=== PATIENT | male | born 1965 | race Two or more races ===

== ENCOUNTER 2020-05-31 08:20 | Inpatient (IN) | payer OTHER ==
[~2020-05-31] VITALS: Ht 165.1 cm; Wt 114.3 kg
[2020-05-31] MEDS ORDERED: AZITHROMYCIN 500MG/ 250ML 250 ML IV ONE (08:45)
[2020-05-31] MEDS ORDERED: ASCORBIC ACID 500 MG TAB PO ONE (08:45)
[2020-05-31] MEDS ORDERED: REMDESIVIR PER PHARMACY 0 ML IV SCH (08:45)
[2020-05-31] MEDS ORDERED: CHOLECALCIFEROL (VITD3) 2,000 UNIT CAP/TAB PO ONE (08:45)
[2020-05-31] MEDS ORDERED: methylPREDNISolone SOD SUCC 125 MG/2 ML VL IV ONE (08:45)
[2020-05-31] MEDS ORDERED: ZINC SULFATE 220mg CAP or TAB PO ONE (08:45)
[2020-05-31 10:01] LABS: Mean Corpuscular Volume 89.4 fL (80.0-100.0)
[2020-05-31 10:03] LABS: Hemoglobin 16.2 g/dL (13.5-17.5); Mean Corpuscular Hemoglobin 30.8 pg (28.0-32.0); Mean Corpuscular Hgb Conc. 34.5 g/dL (32.0-36.0); Red Blood Cells 5.25 10^6/uL (4.5-5.90); Red Cell Distribution Width 13.3 % (11.8-14.3); White Blood Cell 24.6 10^3/uL (4.4-10.8)
[2020-05-31 10:05] LABS: Basophils % (manual) 0 (0.0-2.0); Blast Cells 0; Eosinophils % (manual) 0 (0-7); Metamyelocytes % 0; Myelocytes % 0; Promyelocytes % 0; Reactive Lymphocytes 0
[2020-05-31 10:07] LABS: Albumin 2.7 g/dL (3.4-5.0); Anion Gap 20 (5-15); Blood Urea Nitrogen 20 mg/dL (7-18); Calcium 9.1 mg/dL (8.5-10.1); Carbon Dioxide 15 mmol/L (21-32); Chloride 94 mmol/L (98-107); Glucose 303 mg/dL (74-106); Magnesium 2.8 mg/dL (1.6-2.6); Sodium 129 mmol/L (136-145)
[2020-05-31 10:13] LABS: Alanine Aminotransferase 24 U/L (16-61); Alkaline Phosphatase 128 U/L (45-117); Aspartate Aminotransferase 41 U/L (15-37); BUN/Creatinine Ratio 17.2; GFR African American 84 mL/min; GFR Non-African American 69 mL/min; Total Protein 9.5 g/dL (6.4-8.2)
[2020-05-31 10:23] LABS: Lactic Acid w/Reflex 4.1 mmol/L (0.4-2.0)
[2020-05-31] MEDS ORDERED: NITROGLYCERIN 0.4 MG SL TAB SL PRN (10:45)
[2020-05-31] MEDS ORDERED: MORPHINE SULFATE INJECTION 2 MG/ML SYRG IV PRN ×2 (10:45→12:00)
[2020-05-31] MEDS ORDERED: DEXTROSE (50%) 50ML SYRG IV PRN (12:00)
[2020-05-31] MEDS ORDERED: traMADol HCL 50 MG TAB PO PRN (12:00)
[2020-05-31] MEDS ORDERED: levoFLOXacin 500MG 100 ML IV ONE (12:00)
[2020-05-31] MEDS ORDERED: diphenhdrAMINE HCL 50 MG/1 ML VL IV PRN (12:00)
[2020-05-31] MEDS ORDERED: PROMETHAZINE HCL 25 MG/ML 1ML IV PRN (12:00)
[2020-05-31] MEDS ORDERED: LACTULOSE 20Gm/30ML SOLN PO PRN (12:00)
[2020-05-31] MEDS ORDERED: TEMAZEPAM 15 MG CAP PO PRN (12:00)
[2020-05-31] MEDS ORDERED: IOHEXOL 350 MG/ML 100ML IJ ONE (12:46)
[2020-05-31 13:44] LABS: Urine Bacteria NONE SEEN /hpf (None Seen); Urine Blood 1+ /uL (Negative); Urine Mucus FEW (None Seen); Urine Specific Gravity 1.033 (1.001-1.035); Urine WBC <1 /hpf (0 - 3)
[2020-05-31] MEDS: SODIUM CHLORIDE 0.9% 1,000 ML IV SCH (13:54)
[2020-05-31] MEDS: InsuLIN REG 1unit/0.01ml Soln (100units/ml) SC SCH ×3 (13:56→20:40)
[2020-05-31] MEDS: ACCU-CHEK COMFORT CURVE STRIP VI SCH ×3 (13:56→20:40)
[2020-05-31] MEDS ORDERED: CLINDAMYCIN 600MG IV 50 ML IV SCH (14:00)
[2020-05-31 14:10] LABS: Band Neutrophils % (manual) 3; Lymphocytes % (manual) 2 (10.0-50.0); Monocytes % (manual) 7 (0-12)
[2020-05-31] MEDS: CLINDAMYCIN 600MG IV 50 ML IV SCH (19:32)
[2020-05-31] MEDS: BUDESONIDE (INHALATION) 180 MCG IH IN SCH (19:33)
[2020-05-31] MEDS: ALBUTEROL SULF HFA 90MCG INH 200DOSE IN PRN (19:33)
[2020-05-31] MEDS: ENOXAPARIN SOD 40 MG/0.4 ML SYRINGE SC SCH (21:38)
[2020-05-31] MEDS: FAMOTIDINE (10MG/ML) 2ML VL IV SCH (21:38)
[2020-05-31] MEDS: INSULIN LANTUS (GLARGINE) 1 /0.01ml (100units/ml) SC SCH (21:38)
[2020-06-01] MEDS: InsuLIN REG 1unit/0.01ml Soln (100units/ml) SC SCH ×7 (00:02→23:41)
[2020-06-01] MEDS: ACCU-CHEK COMFORT CURVE STRIP VI SCH ×7 (00:02→23:43)
[2020-06-01 00:50] VITALS: BP 106/48
[2020-06-01 01:05] VITALS: BP 108/48
[2020-06-01 02:00] VITALS: BP 109/41
[2020-06-01] MEDS: SODIUM CHLORIDE 0.9% 1,000 ML IV SCH ×2 (02:05→14:41)
[2020-06-01] MEDS: CLINDAMYCIN 600MG IV 50 ML IV SCH ×2 (04:00→11:21)
[2020-06-01 05:01] LABS: Basophils # (auto) 0.1 10 ^3/uL (0-0.2); Basophils % (auto) 0.6 % (0.0-2.0); Eosinophils # (auto) 0 10 ^3/uL (0-0.8); Hematocrit 42.4 % (41.0-53.0); Hemoglobin 14.7 g/dL (13.5-17.5); Lymphocytes % (auto) 4.1 % (10.0-50.0); Mean Corpuscular Hemoglobin 30.4 pg (28.0-32.0); Mean Corpuscular Hgb Conc. 34.7 g/dL (32.0-36.0); Mean Corpuscular Volume 87.4 fL (80.0-100.0); Monocytes # (auto) 0.9 10 ^3/uL (0-1.3); Neutrophils # (auto) 21.4 10 ^3/uL (1.6-8.6); Neutrophils % (auto) 91.3 % (37.0-80.0); Red Blood Cells 4.86 10^6/uL (4.5-5.90); Red Cell Distribution Width 12.8 % (11.8-14.3); White Blood Cell 23.5 10^3/uL (4.4-10.8)
[2020-06-01 05:20] LABS: Albumin 2.4 g/dL (3.4-5.0); Calcium 8.4 mg/dL (8.5-10.1); Potassium 3.9 mmol/L (3.5-5.1)
[2020-06-01 05:23] LABS: BUN/Creatinine Ratio 29.8; Bilirubin, Total 0.8 mg/dL (0.2-1.0); Total Protein 8.3 g/dL (6.4-8.2)
[2020-06-01] MEDS: INSULIN LANTUS (GLARGINE) 1 /0.01ml (100units/ml) SC SCH ×2 (07:04→21:11)
[2020-06-01] MEDS: DexAMETHasone SOD PHOS 10MG/1ML VIAL INJ IV SCH (07:43)
[2020-06-01] MEDS: levoFLOXacin 500MG 100 ML IV SCH (07:43)
[2020-06-01] MEDS: ASCORBIC ACID 1,000 MG TAB PO SCH (07:43)
[2020-06-01] MEDS: ZINC SULFATE 220mg CAP or TAB PO SCH (07:43)
[2020-06-01] MEDS: FAMOTIDINE (10MG/ML) 2ML VL IV SCH ×2 (07:43→21:16)
[2020-06-01] MEDS: ENOXAPARIN SOD 40 MG/0.4 ML SYRINGE SC SCH (07:44)
[2020-06-01] MEDS: CHOLECALCIFEROL (VITD3) 2,000 UNIT CAP/TAB PO SCH (07:44)
[2020-06-01] MEDS: ALBUTEROL SULF HFA 90MCG INH 200DOSE IN PRN ×2 (07:58→22:33)
[2020-06-01] MEDS: BUDESONIDE (INHALATION) 180 MCG IH IN SCH ×2 (07:58→22:00)
[2020-06-01] MEDS ORDERED: IVERMECTIN 3 MG TAB PO ONE (10:00)
[2020-06-01] MEDS ORDERED: REMDESIVIR 200 MG in NS 210ml LOADING DOSE ADULT IV ONE (15:00)
[2020-06-01] MEDS: ENOXAPARIN SOD 80 MG/0.8ML SYRINGE SC SCH (21:16)
[2020-06-02] MEDS: InsuLIN REG 1unit/0.01ml Soln (100units/ml) SC SCH ×5 (03:42→19:55)
[2020-06-02] MEDS: ACCU-CHEK COMFORT CURVE STRIP VI SCH ×5 (03:43→19:40)
[2020-06-02] MEDS: ALBUTEROL SULF HFA 90MCG INH 200DOSE IN PRN (07:00)
[2020-06-02] MEDS: BUDESONIDE (INHALATION) 180 MCG IH IN SCH ×2 (07:00→19:00)
[2020-06-02] MEDS: INSULIN LANTUS (GLARGINE) 1 /0.01ml (100units/ml) SC SCH ×2 (07:40→22:00)
[2020-06-02 08:16] LABS: Albumin 2.3 g/dL (3.4-5.0); Calcium 8.4 mg/dL (8.5-10.1); Potassium 3.6 mmol/L (3.5-5.1)
[2020-06-02 08:21] LABS: Bilirubin, Total 0.8 mg/dL (0.2-1.0); Total Protein 8.1 g/dL (6.4-8.2)
[2020-06-02 08:32] LABS: Hemoglobin 15.3 g/dL (13.5-17.5); Red Cell Distribution Width 13.2 % (11.8-14.3)
[2020-06-02 08:34] LABS: Hematocrit 44.6 % (41.0-53.0); Mean Corpuscular Hemoglobin 30.5 pg (28.0-32.0); Mean Corpuscular Hgb Conc. 34.4 g/dL (32.0-36.0); Mean Corpuscular Volume 88.8 fL (80.0-100.0); Red Blood Cells 5.02 10^6/uL (4.5-5.90); White Blood Cell 16.8 10^3/uL (4.4-10.8)
[2020-06-02 08:39] LABS: Basophils % (manual) 0 (0.0-2.0); Blast Cells 0; Eosinophils % (manual) 0 (0-7); Metamyelocytes % 0; Promyelocytes % 0; Reactive Lymphocytes 0
[2020-06-02] MEDS: ASCORBIC ACID 1,000 MG TAB PO SCH (09:38)
[2020-06-02] MEDS: DexAMETHasone SOD PHOS 10MG/1ML VIAL INJ IV SCH (09:38)
[2020-06-02] MEDS: FAMOTIDINE (10MG/ML) 2ML VL IV SCH ×2 (09:38→22:30)
[2020-06-02] MEDS: ENOXAPARIN SOD 80 MG/0.8ML SYRINGE SC SCH ×2 (09:39→22:30)
[2020-06-02] MEDS: levoFLOXacin 500MG 100 ML IV SCH (09:39)
[2020-06-02] MEDS: ZINC SULFATE 220mg CAP or TAB PO SCH (09:39)
[2020-06-02] MEDS: CHOLECALCIFEROL (VITD3) 2,000 UNIT CAP/TAB PO SCH (09:40)
[2020-06-02 12:41] LABS: Band Neutrophils % (manual) 6; Lymphocytes % (manual) 1 (10.0-50.0); Monocytes % (manual) 3 (0-12); Myelocytes % 2
[2020-06-02] MEDS: REMDESIVIR 100mg 100 MG in SODIUM CHL 0.9% 230 ML IV SCH (15:14)
[2020-06-03] MEDS: InsuLIN REG 1unit/0.01ml Soln (100units/ml) SC SCH ×8 (01:23→23:59)
[2020-06-03] MEDS: ACCU-CHEK COMFORT CURVE STRIP VI SCH ×8 (01:23→23:58)
[2020-06-03 06:34] LABS: Basophils # (auto) 0 10 ^3/uL (0-0.2); Eosinophils # (auto) 0 10 ^3/uL (0-0.8); Hemoglobin 15.7 g/dL (13.5-17.5); Monocytes # (auto) 0.2 10 ^3/uL (0-1.3); Neutrophils # (auto) 10.2 10 ^3/uL (1.6-8.6); White Blood Cell 11.3 10^3/uL (4.4-10.8)
[2020-06-03] MEDS: INSULIN LANTUS (GLARGINE) 1 /0.01ml (100units/ml) SC SCH ×2 (06:34→21:57)
[2020-06-03 06:37] LABS: Basophils % (auto) 0.3 % (0.0-2.0); Hematocrit 44.8 % (41.0-53.0); Lymphocytes # (auto) 0.9 10 ^3/uL (0.4-5.4); Mean Corpuscular Hemoglobin 30.6 pg (28.0-32.0); Mean Corpuscular Volume 87.4 fL (80.0-100.0); Monocytes % (auto) 1.6 % (0.0-12.0); Neutrophils % (auto) 90.1 % (37.0-80.0); Red Blood Cells 5.12 10^6/uL (4.5-5.90); Red Cell Distribution Width 12.7 % (11.8-14.3)
[2020-06-03 06:48] LABS: Albumin 2.2 g/dL (3.4-5.0); Calcium 8.4 mg/dL (8.5-10.1); Potassium 3.9 mmol/L (3.5-5.1)
[2020-06-03 06:51] LABS: BUN/Creatinine Ratio 20.8; Bilirubin, Total 1.1 mg/dL (0.2-1.0)
[2020-06-03] MEDS: BUDESONIDE (INHALATION) 180 MCG IH IN SCH ×2 (07:33→18:54)
[2020-06-03] MEDS: ALBUTEROL SULF HFA 90MCG INH 200DOSE IN PRN ×2 (07:34→18:54)
[2020-06-03] MEDS: CHOLECALCIFEROL (VITD3) 2,000 UNIT CAP/TAB PO SCH (09:49)
[2020-06-03] MEDS: ZINC SULFATE 220mg CAP or TAB PO SCH (09:49)
[2020-06-03] MEDS: ASCORBIC ACID 1,000 MG TAB PO SCH (09:49)
[2020-06-03] MEDS: FAMOTIDINE (10MG/ML) 2ML VL IV SCH ×2 (09:49→21:57)
[2020-06-03] MEDS: levoFLOXacin 500MG 100 ML IV SCH (09:49)
[2020-06-03] MEDS: ENOXAPARIN SOD 80 MG/0.8ML SYRINGE SC SCH ×2 (09:49→21:57)
[2020-06-03] MEDS: DexAMETHasone SOD PHOS 10MG/1ML VIAL INJ IV SCH (09:50)
[2020-06-03] MEDS: REMDESIVIR 100mg 100 MG in SODIUM CHL 0.9% 230 ML IV SCH (15:25)
[2020-06-03] MEDS ORDERED: ACETAMINOPHEN 650 mg PER 20.3 mL UD PO ONE (16:30)
[2020-06-03] MEDS ORDERED: methylPREDNISolone SOD SUCC 40 MG/ML VL IV ONE (16:30)
[2020-06-03] MEDS ORDERED: diphenhdrAMINE HCL 50 MG/1 ML VL IV ONE (16:30)
[2020-06-03] MEDS ORDERED: TOCILIZUMAB 400 MG in SODIUM CHL 0.9% 80 ML IV ONE (17:00)
[2020-06-04] MEDS: ACCU-CHEK COMFORT CURVE STRIP VI SCH ×5 (04:10→20:00)
[2020-06-04] MEDS: InsuLIN REG 1unit/0.01ml Soln (100units/ml) SC SCH ×5 (04:14→20:06)
[2020-06-04 05:24] LABS: Basophils # (auto) 0 10 ^3/uL (0-0.2); Eosinophils # (auto) 0 10 ^3/uL (0-0.8); Hemoglobin 15.3 g/dL (13.5-17.5); Lymphocytes # (auto) 0.6 10 ^3/uL (0.4-5.4); Monocytes # (auto) 0.2 10 ^3/uL (0-1.3)
[2020-06-04 05:25] LABS: Basophils % (auto) 0.3 % (0.0-2.0); Lymphocytes % (auto) 5.8 % (10.0-50.0); Mean Corpuscular Hemoglobin 30.4 pg (28.0-32.0); Mean Corpuscular Hgb Conc. 34.6 g/dL (32.0-36.0); Mean Corpuscular Volume 87.8 fL (80.0-100.0); Monocytes % (auto) 2.3 % (0.0-12.0); Neutrophils % (auto) 91.6 % (37.0-80.0); Red Blood Cells 5.01 10^6/uL (4.5-5.90); Red Cell Distribution Width 12.9 % (11.8-14.3); White Blood Cell 9.8 10^3/uL (4.4-10.8)
[2020-06-04 05:42] LABS: Calcium 8.3 mg/dL (8.5-10.1); Potassium 4.3 mmol/L (3.5-5.1)
[2020-06-04 05:47] LABS: BUN/Creatinine Ratio 30.3; Bilirubin, Total 1.1 mg/dL (0.2-1.0); Total Protein 7.6 g/dL (6.4-8.2)
[2020-06-04] MEDS: INSULIN LANTUS (GLARGINE) 1 /0.01ml (100units/ml) SC SCH ×2 (06:47→22:05)
[2020-06-04] MEDS: BUDESONIDE (INHALATION) 180 MCG IH IN SCH ×2 (08:00→19:00)
[2020-06-04] MEDS: ALBUTEROL SULF HFA 90MCG INH 200DOSE IN PRN ×2 (08:00→20:09)
[2020-06-04] MEDS ORDERED: ACETAMINOPHEN 650 mg PER 20.3 mL UD PO ONE (10:00)
[2020-06-04] MEDS ORDERED: diphenhdrAMINE HCL 50 MG/1 ML VL IV ONE (10:00)
[2020-06-04] MEDS: levoFLOXacin 500MG 100 ML IV SCH (10:17)
[2020-06-04] MEDS: DexAMETHasone SOD PHOS 10MG/1ML VIAL INJ IV SCH (10:17)
[2020-06-04] MEDS: ZINC SULFATE 220mg CAP or TAB PO SCH (10:18)
[2020-06-04] MEDS: FAMOTIDINE (10MG/ML) 2ML VL IV SCH ×2 (10:18→22:06)
[2020-06-04] MEDS: ENOXAPARIN SOD 80 MG/0.8ML SYRINGE SC SCH ×2 (10:19→22:06)
[2020-06-04] MEDS: ASCORBIC ACID 1,000 MG TAB PO SCH (10:19)
[2020-06-04] MEDS: CHOLECALCIFEROL (VITD3) 2,000 UNIT CAP/TAB PO SCH (10:19)
[2020-06-04] MEDS ORDERED: TOCILIZUMAB 400 MG in SODIUM CHL 0.9% 80 ML IV ONE (10:30)
[2020-06-04] MEDS: REMDESIVIR 100mg 100 MG in SODIUM CHL 0.9% 230 ML IV SCH (15:40)
[2020-06-05] MEDS: InsuLIN REG 1unit/0.01ml Soln (100units/ml) SC SCH ×5 (01:06→16:56)
[2020-06-05] MEDS: ACCU-CHEK COMFORT CURVE STRIP VI SCH ×6 (04:08→20:00)
[2020-06-05 06:24] LABS: Hematocrit 43.2 % (41.0-53.0); Hemoglobin 15.2 g/dL (13.5-17.5); Mean Corpuscular Hemoglobin 30.9 pg (28.0-32.0); Mean Corpuscular Hgb Conc. 35.2 g/dL (32.0-36.0); Mean Corpuscular Volume 87.7 fL (80.0-100.0); Red Blood Cells 4.92 10^6/uL (4.5-5.90); Red Cell Distribution Width 12.7 % (11.8-14.3); White Blood Cell 11.7 10^3/uL (4.4-10.8)
[2020-06-05] MEDS: INSULIN LANTUS (GLARGINE) 1 /0.01ml (100units/ml) SC SCH (06:36)
[2020-06-05 06:42] LABS: Band Neutrophils % (manual) 0; Basophils % (manual) 0 (0.0-2.0); Blast Cells 0; Eosinophils % (manual) 0 (0-7); Metamyelocytes % 0; Myelocytes % 0; Promyelocytes % 0; Reactive Lymphocytes 0
[2020-06-05 06:44] LABS: Albumin 2.1 g/dL (3.4-5.0); Calcium 8.5 mg/dL (8.5-10.1); Potassium 4.2 mmol/L (3.5-5.1)
[2020-06-05 06:48] LABS: BUN/Creatinine Ratio 27.4; Bilirubin, Total 0.8 mg/dL (0.2-1.0); Total Protein 7.5 g/dL (6.4-8.2)
[2020-06-05] MEDS: ALBUTEROL SULF HFA 90MCG INH 200DOSE IN PRN (06:55)
[2020-06-05] MEDS: BUDESONIDE (INHALATION) 180 MCG IH IN SCH ×2 (06:55→22:00)
[2020-06-05 08:40] LABS: Lymphocytes % (manual) 8 (10.0-50.0); Monocytes % (manual) 6 (0-12)
[2020-06-05] MEDS: CHOLECALCIFEROL (VITD3) 2,000 UNIT CAP/TAB PO SCH (09:20)
[2020-06-05] MEDS: FAMOTIDINE (10MG/ML) 2ML VL IV SCH ×2 (09:20→23:00)
[2020-06-05] MEDS: DexAMETHasone SOD PHOS 10MG/1ML VIAL INJ IV SCH (09:20)
[2020-06-05] MEDS: levoFLOXacin 500MG 100 ML IV SCH (09:21)
[2020-06-05] MEDS: ENOXAPARIN SOD 80 MG/0.8ML SYRINGE SC SCH ×2 (09:21→23:20)
[2020-06-05] MEDS: ZINC SULFATE 220mg CAP or TAB PO SCH (09:21)
[2020-06-05] MEDS: ASCORBIC ACID 1,000 MG TAB PO SCH (09:21)
[2020-06-05] MEDS: REMDESIVIR 100mg 100 MG in SODIUM CHL 0.9% 230 ML IV SCH (15:42)
[2020-06-05] MEDS ORDERED: InsuLIN REG 1unit/0.01ml Soln (100units/ml) ONE (23:10)
[2020-06-05] MEDS ORDERED: ENOXAPARIN SOD 100 MG/1 ML SYRINGE SC ONE (23:13)
[2020-06-05] MEDS ORDERED: FAMOTIDINE (10MG/ML) 2ML VL IV ONE (23:13)
[2020-06-05] MEDS ORDERED: INSULIN LANTUS (GLARGINE) 1 /0.01ml (100units/ml) SC ONE (23:14)
[2020-06-06] VITALS (8 sets, daily range): BP systolic 103–119; BP diastolic 71–78
[2020-06-06] MEDS: ACCU-CHEK COMFORT CURVE STRIP VI SCH ×6 (00:27→20:24)
[2020-06-06] MEDS: InsuLIN REG 1unit/0.01ml Soln (100units/ml) SC SCH ×7 (00:40→20:28)
[2020-06-06] MEDS: ALBUTEROL SULF HFA 90MCG INH 200DOSE IN PRN ×3 (04:06→20:36)
[2020-06-06] MEDS: BUDESONIDE (INHALATION) 180 MCG IH IN SCH ×2 (04:07→18:36)
[2020-06-06 06:56] LABS: Red Cell Distribution Width 13.1 % (11.8-14.3)
[2020-06-06 06:59] LABS: Hematocrit 50.3 % (41.0-53.0); Mean Corpuscular Hgb Conc. 33.8 g/dL (32.0-36.0); Mean Corpuscular Volume 88.7 fL (80.0-100.0); Red Blood Cells 5.67 10^6/uL (4.5-5.90); White Blood Cell 10.5 10^3/uL (4.4-10.8)
[2020-06-06 07:04] LABS: Basophils % (manual) 0 (0.0-2.0); Blast Cells 0; Metamyelocytes % 0; Promyelocytes % 0; Reactive Lymphocytes 0
[2020-06-06 07:16] LABS: BUN/Creatinine Ratio 26.7; Calcium 8.7 mg/dL (8.5-10.1)
[2020-06-06] MEDS: INSULIN LANTUS (GLARGINE) 1 /0.01ml (100units/ml) SC SCH ×3 (07:48→22:38)
[2020-06-06 11:52] LABS: Band Neutrophils % (manual) 17; Eosinophils % (manual) 1 (0-7); Lymphocytes % (manual) 9 (10.0-50.0); Monocytes % (manual) 2 (0-12); Myelocytes % 1
[2020-06-06] MEDS: DexAMETHasone SOD PHOS 10MG/1ML VIAL INJ IV SCH (12:03)
[2020-06-06] MEDS: ASCORBIC ACID 1,000 MG TAB PO SCH (12:03)
[2020-06-06] MEDS: FAMOTIDINE (10MG/ML) 2ML VL IV SCH ×2 (12:03→22:47)
[2020-06-06] MEDS: CHOLECALCIFEROL (VITD3) 2,000 UNIT CAP/TAB PO SCH (12:03)
[2020-06-06] MEDS: ZINC SULFATE 220mg CAP or TAB PO SCH (12:03)
[2020-06-06] MEDS: ENOXAPARIN SOD 80 MG/0.8ML SYRINGE SC SCH ×2 (12:04→22:46)
[2020-06-06] MEDS: levoFLOXacin 500MG 100 ML IV SCH (12:39)
[2020-06-06] MEDS ORDERED: ONDANSETRON HCL 4 MG/2 ML VIAL IV PRN (13:30)
[2020-06-07] MEDS: ACCU-CHEK COMFORT CURVE STRIP VI SCH ×6 (00:40→20:00)
[2020-06-07] MEDS: InsuLIN REG 1unit/0.01ml Soln (100units/ml) SC SCH ×6 (00:40→20:00)
[2020-06-07 02:43] VITALS: BP 108/68
[2020-06-07 06:53] VITALS: BP 106/70
[2020-06-07] MEDS: ALBUTEROL SULF HFA 90MCG INH 200DOSE IN PRN ×2 (06:53→18:52)
[2020-06-07] MEDS: BUDESONIDE (INHALATION) 180 MCG IH IN SCH ×2 (06:53→18:18)
[2020-06-07 07:00] LABS: Basophils # (auto) 0 10 ^3/uL (0-0.2); Basophils % (auto) 0.4 % (0.0-2.0); Eosinophils # (auto) 0.1 10 ^3/uL (0-0.8); Eosinophils % (auto) 0.9 % (0.0-7.0); Hematocrit 47.6 % (41.0-53.0); Hemoglobin 16.6 g/dL (13.5-17.5); Lymphocytes # (auto) 0.8 10 ^3/uL (0.4-5.4); Lymphocytes % (auto) 9.3 % (10.0-50.0); Mean Corpuscular Hemoglobin 30.7 pg (28.0-32.0); Mean Corpuscular Hgb Conc. 34.9 g/dL (32.0-36.0); Mean Corpuscular Volume 88.1 fL (80.0-100.0); Monocytes # (auto) 0.2 10 ^3/uL (0-1.3); Monocytes % (auto) 1.9 % (0.0-12.0); Neutrophils # (auto) 7.3 10 ^3/uL (1.6-8.6); Neutrophils % (auto) 87.5 % (37.0-80.0); Nucleated Red Blood Cells % 0.1 %; Red Cell Distribution Width 12.9 % (11.8-14.3); White Blood Cell 8.3 10^3/uL (4.4-10.8)
[2020-06-07 07:22] LABS: BUN/Creatinine Ratio 29.6; Calcium 8.3 mg/dL (8.5-10.1); Potassium 4.4 mmol/L (3.5-5.1)
[2020-06-07] MEDS: INSULIN LANTUS (GLARGINE) 1 /0.01ml (100units/ml) SC SCH ×2 (07:39→22:00)
[2020-06-07] MEDS: ASCORBIC ACID 1,000 MG TAB PO SCH (09:36)
[2020-06-07] MEDS: ZINC SULFATE 220mg CAP or TAB PO SCH (09:36)
[2020-06-07] MEDS: FAMOTIDINE (10MG/ML) 2ML VL IV SCH ×2 (09:36→22:00)
[2020-06-07] MEDS: DexAMETHasone SOD PHOS 10MG/1ML VIAL INJ IV SCH (09:36)
[2020-06-07] MEDS: CHOLECALCIFEROL (VITD3) 2,000 UNIT CAP/TAB PO SCH (09:36)
[2020-06-07] MEDS: ENOXAPARIN SOD 80 MG/0.8ML SYRINGE SC SCH ×2 (09:36→22:00)
[2020-06-07] MEDS: levoFLOXacin 500MG 100 ML IV SCH (09:36)
[2020-06-07 11:46] VITALS: BP 102/66
[2020-06-07 15:02] VITALS: BP 121/80
[2020-06-07 18:18] VITALS: BP 110/69
[2020-06-07 23:58] VITALS: BP 100/58
[2020-06-08 03:00] VITALS: BP 114/91
[2020-06-08] MEDS: InsuLIN REG 1unit/0.01ml Soln (100units/ml) SC SCH ×6 (04:00→20:00)
[2020-06-08] MEDS: ACCU-CHEK COMFORT CURVE STRIP VI SCH ×6 (04:00→20:00)
[2020-06-08 05:50] VITALS: BP 109/70
[2020-06-08] MEDS: INSULIN LANTUS (GLARGINE) 1 /0.01ml (100units/ml) SC SCH ×2 (06:49→22:00)
[2020-06-08 07:32] LABS: BUN/Creatinine Ratio 30.4; CRP High Sensitivity 0.66 mg/dL (< 0.3); Calcium 8.2 mg/dL (8.5-10.1); Potassium 4.2 mmol/L (3.5-5.1)
[2020-06-08 07:33] LABS: Basophils # (auto) 0 10 ^3/uL (0-0.2); Basophils % (auto) 0.2 % (0.0-2.0); Eosinophils # (auto) 0.1 10 ^3/uL (0-0.8); Eosinophils % (auto) 0.8 % (0.0-7.0); Hematocrit 47.7 % (41.0-53.0); Hemoglobin 16.2 g/dL (13.5-17.5); Lymphocytes # (auto) 0.9 10 ^3/uL (0.4-5.4); Lymphocytes % (auto) 9.1 % (10.0-50.0); Mean Corpuscular Hemoglobin 30.1 pg (28.0-32.0); Mean Corpuscular Volume 88.6 fL (80.0-100.0); Monocytes # (auto) 0.2 10 ^3/uL (0-1.3); Monocytes % (auto) 2.3 % (0.0-12.0); Neutrophils # (auto) 8.6 10 ^3/uL (1.6-8.6); Neutrophils % (auto) 87.6 % (37.0-80.0); Nucleated Red Blood Cells % 0.1 %; Red Blood Cells 5.38 10^6/uL (4.5-5.90); Red Cell Distribution Width 13.1 % (11.8-14.3); White Blood Cell 9.8 10^3/uL (4.4-10.8)
[2020-06-08] MEDS: BUDESONIDE (INHALATION) 180 MCG IH IN SCH ×2 (10:00→22:00)
[2020-06-08] MEDS: levoFLOXacin 500MG 100 ML IV SCH (10:11)
[2020-06-08] MEDS: CHOLECALCIFEROL (VITD3) 2,000 UNIT CAP/TAB PO SCH (10:11)
[2020-06-08] MEDS: ENOXAPARIN SOD 80 MG/0.8ML SYRINGE SC SCH ×2 (10:11→22:00)
[2020-06-08] MEDS: ASCORBIC ACID 1,000 MG TAB PO SCH (10:11)
[2020-06-08] MEDS: DexAMETHasone SOD PHOS 10MG/1ML VIAL INJ IV SCH (10:11)
[2020-06-08] MEDS: ZINC SULFATE 220mg CAP or TAB PO SCH (10:11)
[2020-06-08] MEDS: FAMOTIDINE (10MG/ML) 2ML VL IV SCH ×2 (10:11→22:00)
[2020-06-08 13:50] VITALS: BP 110/68
[2020-06-08 19:00] VITALS: BP 107/71
[2020-06-09 02:20] VITALS: BP 113/58
[2020-06-09] MEDS: InsuLIN REG 1unit/0.01ml Soln (100units/ml) SC SCH ×6 (04:00→20:00)
[2020-06-09] MEDS: ACCU-CHEK COMFORT CURVE STRIP VI SCH ×6 (04:00→20:01)
[2020-06-09] MEDS: INSULIN LANTUS (GLARGINE) 1 /0.01ml (100units/ml) SC SCH ×2 (06:05→22:00)
[2020-06-09 07:05] LABS: Basophils # (auto) 0 10 ^3/uL (0-0.2); Basophils % (auto) 0.2 % (0.0-2.0); Eosinophils # (auto) 0 10 ^3/uL (0-0.8); Hemoglobin 16.3 g/dL (13.5-17.5); Lymphocytes # (auto) 0.9 10 ^3/uL (0.4-5.4); Lymphocytes % (auto) 7.1 % (10.0-50.0); Mean Corpuscular Hemoglobin 29.5 pg (28.0-32.0); Mean Corpuscular Hgb Conc. 33.2 g/dL (32.0-36.0); Mean Corpuscular Volume 88.9 fL (80.0-100.0); Monocytes # (auto) 0.6 10 ^3/uL (0-1.3); Monocytes % (auto) 4.6 % (0.0-12.0); Neutrophils # (auto) 10.6 10 ^3/uL (1.6-8.6); Neutrophils % (auto) 88.1 % (37.0-80.0); Red Blood Cells 5.51 10^6/uL (4.5-5.90); Red Cell Distribution Width 13.1 % (11.8-14.3); White Blood Cell 12.1 10^3/uL (4.4-10.8)
[2020-06-09 07:07] VITALS: BP 97/65
[2020-06-09 07:32] LABS: Potassium 3.9 mmol/L (3.5-5.1)
[2020-06-09] MEDS: BUDESONIDE (INHALATION) 180 MCG IH IN SCH ×2 (07:41→18:25)
[2020-06-09] MEDS: ALBUTEROL SULF HFA 90MCG INH 200DOSE IN PRN ×2 (07:41→19:23)
[2020-06-09 07:46] LABS: BUN/Creatinine Ratio 36.9; Calcium 8.4 mg/dL (8.5-10.1)
[2020-06-09] MEDS: DexAMETHasone SOD PHOS 10MG/1ML VIAL INJ IV SCH (09:40)
[2020-06-09] MEDS: levoFLOXacin 500MG 100 ML IV SCH (09:40)
[2020-06-09] MEDS: ZINC SULFATE 220mg CAP or TAB PO SCH (09:41)
[2020-06-09] MEDS: FAMOTIDINE (10MG/ML) 2ML VL IV SCH ×2 (09:41→22:00)
[2020-06-09] MEDS: ASCORBIC ACID 1,000 MG TAB PO SCH (09:41)
[2020-06-09] MEDS: ENOXAPARIN SOD 80 MG/0.8ML SYRINGE SC SCH ×2 (09:41→22:00)
[2020-06-09] MEDS: CHOLECALCIFEROL (VITD3) 2,000 UNIT CAP/TAB PO SCH (09:41)
[2020-06-09 10:54] VITALS: BP 119/79
[2020-06-09] MEDS: guaiFENesin-CODEINE Liq 5 ML UD PO PRN ×2 (13:23→22:18)
[2020-06-09] MEDS ORDERED: PIPERACILLIN-TAZOB 3.375GM 100 ML IV ONE (13:30)
[2020-06-09 14:22] VITALS: BP 106/59
[2020-06-09 18:25] VITALS: BP 104/62
[2020-06-09] MEDS: PIPERACILLIN-TAZO 4.5GM 100 ML IV SCH (22:00)
[2020-06-09 22:01] VITALS: BP 96/69
[2020-06-10] MEDS: ACCU-CHEK COMFORT CURVE STRIP VI SCH ×6 (00:12→21:30)
[2020-06-10] MEDS: InsuLIN REG 1unit/0.01ml Soln (100units/ml) SC SCH ×6 (03:13→21:44)
[2020-06-10 03:17] VITALS: BP 112/68
[2020-06-10] MEDS: PIPERACILLIN-TAZO 4.5GM 100 ML IV SCH ×3 (05:19→22:08)
[2020-06-10 06:10] VITALS: BP 99/48
[2020-06-10] MEDS: BUDESONIDE (INHALATION) 180 MCG IH IN SCH ×2 (06:10→19:09)
[2020-06-10] MEDS: INSULIN LANTUS (GLARGINE) 1 /0.01ml (100units/ml) SC SCH ×2 (06:47→22:09)
[2020-06-10 06:49] LABS: Basophils # (auto) 0.1 10 ^3/uL (0-0.2); Eosinophils # (auto) 0 10 ^3/uL (0-0.8); Eosinophils % (auto) 0.2 % (0.0-7.0); Monocytes # (auto) 0.5 10 ^3/uL (0-1.3); Monocytes % (auto) 3.8 % (0.0-12.0); Neutrophils # (auto) 10.9 10 ^3/uL (1.6-8.6)
[2020-06-10 06:52] LABS: Basophils % (auto) 0.8 % (0.0-2.0); Hematocrit 48.4 % (41.0-53.0); Hemoglobin 16.7 g/dL (13.5-17.5); Lymphocytes # (auto) 1.4 10 ^3/uL (0.4-5.4); Lymphocytes % (auto) 10.7 % (10.0-50.0); Mean Corpuscular Hemoglobin 30.6 pg (28.0-32.0); Mean Corpuscular Hgb Conc. 34.5 g/dL (32.0-36.0); Mean Corpuscular Volume 88.7 fL (80.0-100.0); Neutrophils % (auto) 84.5 % (37.0-80.0); Nucleated Red Blood Cells % 0.1 %; Red Blood Cells 5.46 10^6/uL (4.5-5.90); Red Cell Distribution Width 12.9 % (11.8-14.3); White Blood Cell 12.9 10^3/uL (4.4-10.8)
[2020-06-10] MEDS: ALBUTEROL SULF HFA 90MCG INH 200DOSE IN PRN ×2 (07:04→20:37)
[2020-06-10 07:09] LABS: Potassium 3.9 mmol/L (3.5-5.1)
[2020-06-10 07:17] LABS: BUN/Creatinine Ratio 27.5; Calcium 8.1 mg/dL (8.5-10.1)
[2020-06-10] MEDS: DexAMETHasone SOD PHOS 10MG/1ML VIAL INJ IV SCH (09:45)
[2020-06-10] MEDS: ENOXAPARIN SOD 80 MG/0.8ML SYRINGE SC SCH ×2 (09:45→22:12)
[2020-06-10] MEDS: ASCORBIC ACID 1,000 MG TAB PO SCH (09:45)
[2020-06-10] MEDS: CHOLECALCIFEROL (VITD3) 2,000 UNIT CAP/TAB PO SCH (09:45)
[2020-06-10] MEDS: FAMOTIDINE (10MG/ML) 2ML VL IV SCH ×2 (09:45→22:04)
[2020-06-10] MEDS: ZINC SULFATE 220mg CAP or TAB PO SCH (09:45)
[2020-06-10 14:44] VITALS: BP 103/57
[2020-06-10 19:09] VITALS: BP 107/68
[2020-06-10 22:00] VITALS: BP 103/69
[2020-06-10] MEDS ORDERED: ENOXAPARIN SOD 100 MG/1 ML SYRINGE SC ONE (22:00)
[2020-06-10] MEDS ORDERED: FAMOTIDINE (10MG/ML) 2ML VL IV ONE (22:00)
[2020-06-10] MEDS ORDERED: PIPERACILLIN-TAZO 4.5GM 100 ML IV ONE (22:02)
[2020-06-11] MEDS: ACCU-CHEK COMFORT CURVE STRIP VI SCH ×6 (00:30→20:13)
[2020-06-11] MEDS: InsuLIN REG 1unit/0.01ml Soln (100units/ml) SC SCH ×6 (00:30→20:17)
[2020-06-11 02:35] VITALS: BP 105/72
[2020-06-11] MEDS: PIPERACILLIN-TAZO 4.5GM 100 ML IV SCH ×3 (05:48→22:38)
[2020-06-11] MEDS ORDERED: PIPERACILLIN-TAZO 4.5GM 100 ML IV ONE (05:48)
[2020-06-11 05:56] LABS: Basophils # (auto) 0.1 10 ^3/uL (0-0.2); Basophils % (auto) 0.5 % (0.0-2.0); Eosinophils # (auto) 0 10 ^3/uL (0-0.8); Hematocrit 43.8 % (41.0-53.0); Hemoglobin 15.4 g/dL (13.5-17.5); Mean Corpuscular Hemoglobin 30.7 pg (28.0-32.0); Mean Corpuscular Hgb Conc. 35.1 g/dL (32.0-36.0); Mean Corpuscular Volume 87.3 fL (80.0-100.0); Monocytes # (auto) 0.4 10 ^3/uL (0-1.3); Neutrophils # (auto) 8.6 10 ^3/uL (1.6-8.6); Neutrophils % (auto) 85.5 % (37.0-80.0); Nucleated Red Blood Cells % 0.2 %; Red Blood Cells 5.01 10^6/uL (4.5-5.90); Red Cell Distribution Width 12.6 % (11.8-14.3); White Blood Cell 10.1 10^3/uL (4.4-10.8)
[2020-06-11 06:10] LABS: Potassium 4.1 mmol/L (3.5-5.1)
[2020-06-11 06:12] LABS: BUN/Creatinine Ratio 33.3
[2020-06-11] MEDS: INSULIN LANTUS (GLARGINE) 1 /0.01ml (100units/ml) SC SCH ×2 (07:21→22:39)
[2020-06-11 07:22] VITALS: BP 106/73
[2020-06-11] MEDS: BUDESONIDE (INHALATION) 180 MCG IH IN SCH ×2 (07:22→18:00)
[2020-06-11] MEDS: DexAMETHasone SOD PHOS 10MG/1ML VIAL INJ IV SCH (08:13)
[2020-06-11] MEDS: ZINC SULFATE 220mg CAP or TAB PO SCH (08:13)
[2020-06-11] MEDS: FAMOTIDINE (10MG/ML) 2ML VL IV SCH ×2 (08:13→22:38)
[2020-06-11] MEDS: ENOXAPARIN SOD 80 MG/0.8ML SYRINGE SC SCH ×2 (08:14→22:39)
[2020-06-11] MEDS: ASCORBIC ACID 1,000 MG TAB PO SCH (08:14)
[2020-06-11] MEDS: CHOLECALCIFEROL (VITD3) 2,000 UNIT CAP/TAB PO SCH (08:14)
[2020-06-11] MEDS: guaiFENesin-CODEINE Liq 5 ML UD PO PRN (10:22)
[2020-06-11] MEDS ORDERED: ETOMIDATE (2MG/ML) 20ML VIAL IV ONE ×2 (11:44→11:45)
[2020-06-11] MEDS: fentaNYL Drip 2500mCg/250mlNS 250 ML IV SCH (11:45)
[2020-06-11] MEDS: MIDAZOLAM DRIP 50 mg/50mL 50 ML IV SCH (11:45)
[2020-06-11] MEDS ORDERED: ROCURONIUM 10MG/ML 10ML VIAL IV ONE (11:45)
[2020-06-11] MEDS ORDERED: SUCCINYLCHOLINE CHLORIDE 20 MG/ML 10ML VIAL IV ONE (11:45)
[2020-06-11] MEDS ORDERED: MIDAZOLAM DRIP 50 mg/50mL 50 ML IV ONE (11:51)
[2020-06-11 15:02] VITALS: BP 117/79
[2020-06-11 18:10] VITALS: BP 118/76
[2020-06-11 22:40] VITALS: BP 85/59
[2020-06-12] MEDS: ACCU-CHEK COMFORT CURVE STRIP VI SCH ×6 (00:16→22:07)
[2020-06-12 02:15] VITALS: BP 119/67
[2020-06-12] MEDS: ALBUTEROL SULF HFA 90MCG INH 200DOSE IN PRN ×3 (02:25→19:01)
[2020-06-12] MEDS: guaiFENesin-CODEINE Liq 5 ML UD PO PRN ×2 (03:54→17:22)
[2020-06-12] MEDS: InsuLIN REG 1unit/0.01ml Soln (100units/ml) SC SCH ×6 (04:00→22:03)
[2020-06-12 06:22] VITALS: BP 113/60
[2020-06-12] MEDS: BUDESONIDE (INHALATION) 180 MCG IH IN SCH ×2 (06:22→22:17)
[2020-06-12] MEDS: PIPERACILLIN-TAZO 4.5GM 100 ML IV SCH ×3 (06:26→22:27)
[2020-06-12 08:10] LABS: Basophils # (auto) 0.1 10 ^3/uL (0-0.2); Basophils % (auto) 0.5 % (0.0-2.0); Eosinophils # (auto) 0 10 ^3/uL (0-0.8); Eosinophils % (auto) 0.2 % (0.0-7.0); Hematocrit 47.2 % (41.0-53.0); Hemoglobin 16.2 g/dL (13.5-17.5); Lymphocytes # (auto) 1.7 10 ^3/uL (0.4-5.4); Lymphocytes % (auto) 13.4 % (10.0-50.0); Mean Corpuscular Hemoglobin 30.2 pg (28.0-32.0); Mean Corpuscular Hgb Conc. 34.2 g/dL (32.0-36.0); Mean Corpuscular Volume 88.3 fL (80.0-100.0); Monocytes # (auto) 0.5 10 ^3/uL (0-1.3); Monocytes % (auto) 3.7 % (0.0-12.0); Neutrophils # (auto) 10.7 10 ^3/uL (1.6-8.6); Neutrophils % (auto) 82.2 % (37.0-80.0); Nucleated Red Blood Cells % 0.1 %; Red Blood Cells 5.35 10^6/uL (4.5-5.90); Red Cell Distribution Width 13.1 % (11.8-14.3); White Blood Cell 13.1 10^3/uL (4.4-10.8)
[2020-06-12 08:24] LABS: BUN/Creatinine Ratio 29.6; Potassium 4.3 mmol/L (3.5-5.1)
[2020-06-12] MEDS: ENOXAPARIN SOD 80 MG/0.8ML SYRINGE SC SCH ×2 (09:29→22:17)
[2020-06-12] MEDS: ASCORBIC ACID 1,000 MG TAB PO SCH (09:29)
[2020-06-12] MEDS: DexAMETHasone SOD PHOS 10MG/1ML VIAL INJ IV SCH (09:29)
[2020-06-12] MEDS: FAMOTIDINE (10MG/ML) 2ML VL IV SCH ×2 (09:29→22:17)
[2020-06-12] MEDS: ZINC SULFATE 220mg CAP or TAB PO SCH (09:29)
[2020-06-12] MEDS: CHOLECALCIFEROL (VITD3) 2,000 UNIT CAP/TAB PO SCH (09:29)
[2020-06-12] MEDS: INSULIN LANTUS (GLARGINE) 1 /0.01ml (100units/ml) SC SCH ×2 (09:49→22:22)
[2020-06-12 10:20] VITALS: BP 123/72
[2020-06-12] MEDS: MIDAZOLAM DRIP 50 mg/50mL 50 ML IV SCH (10:52)
[2020-06-12] MEDS: fentaNYL Drip 2500mCg/250mlNS 250 ML IV SCH (10:52)
[2020-06-12 15:20] VITALS: BP 119/76
[2020-06-12 22:18] VITALS: BP 101/77
[2020-06-13 02:05] VITALS: BP 110/73
[2020-06-13] MEDS: ACCU-CHEK COMFORT CURVE STRIP VI SCH ×7 (04:14→23:44)
[2020-06-13] MEDS: InsuLIN REG 1unit/0.01ml Soln (100units/ml) SC SCH ×7 (04:40→23:44)
[2020-06-13] MEDS: PIPERACILLIN-TAZO 4.5GM 100 ML IV SCH ×3 (05:39→21:15)
[2020-06-13 06:09] LABS: Basophils # (auto) 0.1 10 ^3/uL (0-0.2); Basophils % (auto) 0.7 % (0.0-2.0); Eosinophils # (auto) 0 10 ^3/uL (0-0.8); Eosinophils % (auto) 0.1 % (0.0-7.0); Hematocrit 47.2 % (41.0-53.0); Hemoglobin 16.3 g/dL (13.5-17.5); Lymphocytes # (auto) 1.5 10 ^3/uL (0.4-5.4); Lymphocytes % (auto) 12.4 % (10.0-50.0); Mean Corpuscular Hemoglobin 30.3 pg (28.0-32.0); Mean Corpuscular Hgb Conc. 34.5 g/dL (32.0-36.0); Mean Corpuscular Volume 87.9 fL (80.0-100.0); Monocytes # (auto) 0.5 10 ^3/uL (0-1.3); Monocytes % (auto) 3.8 % (0.0-12.0); Neutrophils # (auto) 10.2 10 ^3/uL (1.6-8.6); Nucleated Red Blood Cells % 0.3 %; Red Blood Cells 5.37 10^6/uL (4.5-5.90); Red Cell Distribution Width 13.1 % (11.8-14.3); White Blood Cell 12.3 10^3/uL (4.4-10.8)
[2020-06-13 06:20] LABS: Potassium 3.7 mmol/L (3.5-5.1)
[2020-06-13 06:27] LABS: BUN/Creatinine Ratio 29.9; Calcium 8.2 mg/dL (8.5-10.1)
[2020-06-13] MEDS: guaiFENesin-CODEINE Liq 5 ML UD PO PRN (07:09)
[2020-06-13 07:24] VITALS: BP 111/76
[2020-06-13] MEDS: BUDESONIDE (INHALATION) 180 MCG IH IN SCH ×2 (07:24→18:50)
[2020-06-13] MEDS: ALBUTEROL SULF HFA 90MCG INH 200DOSE IN PRN ×2 (07:24→18:50)
[2020-06-13] MEDS: INSULIN LANTUS (GLARGINE) 1 /0.01ml (100units/ml) SC SCH ×2 (07:45→20:30)
[2020-06-13 10:15] VITALS: BP 101/71
[2020-06-13] MEDS: MIDAZOLAM DRIP 50 mg/50mL 50 ML IV SCH (11:45)
[2020-06-13] MEDS: fentaNYL Drip 2500mCg/250mlNS 250 ML IV SCH (11:45)
[2020-06-13] MEDS: FAMOTIDINE (10MG/ML) 2ML VL IV SCH ×2 (12:20→21:15)
[2020-06-13] MEDS: CHOLECALCIFEROL (VITD3) 2,000 UNIT CAP/TAB PO SCH (12:21)
[2020-06-13] MEDS: ASCORBIC ACID 1,000 MG TAB PO SCH (12:21)
[2020-06-13] MEDS: ZINC SULFATE 220mg CAP or TAB PO SCH (12:21)
[2020-06-13] MEDS: ENOXAPARIN SOD 80 MG/0.8ML SYRINGE SC SCH ×2 (12:22→21:16)
[2020-06-13 15:24] VITALS: BP 119/85
[2020-06-13] MEDS ORDERED: LORazepam 2MG/ML-1ML VIAL IV PRN (16:00)
[2020-06-13 18:50] VITALS: BP 133/86
[2020-06-13 22:48] VITALS: BP 102/67
[2020-06-14] VITALS (28 sets, daily range): BP systolic 77–171; BP diastolic 45–84
[2020-06-14] MEDS: ACCU-CHEK COMFORT CURVE STRIP VI SCH ×5 (03:35→20:00)
[2020-06-14] MEDS: InsuLIN REG 1unit/0.01ml Soln (100units/ml) SC SCH ×5 (03:35→20:00)
[2020-06-14] MEDS: INSULIN LANTUS (GLARGINE) 1 /0.01ml (100units/ml) SC SCH ×2 (05:34→22:00)
[2020-06-14] MEDS: PIPERACILLIN-TAZO 4.5GM 100 ML IV SCH ×3 (06:17→22:11)
[2020-06-14] MEDS: BUDESONIDE (INHALATION) 180 MCG IH IN SCH ×2 (07:09→22:00)
[2020-06-14] MEDS: ZINC SULFATE 220mg CAP or TAB PO SCH (09:52)
[2020-06-14] MEDS: FAMOTIDINE (10MG/ML) 2ML VL IV SCH ×2 (09:53→22:11)
[2020-06-14] MEDS: CHOLECALCIFEROL (VITD3) 2,000 UNIT CAP/TAB PO SCH (09:53)
[2020-06-14] MEDS: ASCORBIC ACID 1,000 MG TAB PO SCH (09:53)
[2020-06-14] MEDS: ENOXAPARIN SOD 80 MG/0.8ML SYRINGE SC SCH ×2 (09:53→22:12)
[2020-06-14] MEDS ORDERED: ETOMIDATE (2MG/ML) 20ML VIAL IV ONE (15:45)
[2020-06-14] MEDS: NOREPINEPHRINE 8 MG/250ML KIT 250 ML IV SCH ×2 (15:45→20:46)
[2020-06-14] MEDS: PHENYLEPHRINE IV 250 ML IV SCH (15:45)
[2020-06-14] MEDS ORDERED: PROPOFOL 100 ML IV SCH ×3 (15:45→19:00)
[2020-06-14] MEDS ORDERED: ROCURONIUM 10MG/ML 10ML VIAL IV ONE (15:45)
[2020-06-14] MEDS ORDERED: ATRACURIUM BESYLATE 1,000 MG in D5W 5% 150 ML IV SCH (16:15)
[2020-06-14] MEDS ORDERED: ATRACURIUM BESYLATE (10 MG/ ML) 10 ML VIAL IV ONE (16:30)
[2020-06-14] MEDS: ATRACURIUM BESYLATE 1,000 MG in D5W 5% 150 ML IV SCH (17:00)
[2020-06-14] MEDS: PROPOFOL 100 ML IV SCH (20:00)
[2020-06-14] MEDS ORDERED: SODIUM BICARBONATE 8.4 % INJ 50ML VIAL IV ONE ×2 (20:00→20:44)
[2020-06-15] VITALS (98 sets, daily range): BP systolic 80–167; BP diastolic 39–68
[2020-06-15] MEDS ORDERED: SODIUM BICARBONATE 8.4 % INJ 50ML VIAL IV SCH ×2
[2020-06-15] MEDS: PROPOFOL 100 ML IV SCH (00:30)
[2020-06-15] MEDS: MIDAZOLAM DRIP 50 mg/50mL 50 ML IV SCH ×4 (02:00→23:00)
[2020-06-15] MEDS: fentaNYL Drip 2500mCg/250mlNS 250 ML IV SCH ×2 (03:15→14:24)
[2020-06-15] MEDS: NOREPINEPHRINE 8 MG/250ML KIT 250 ML IV SCH ×5 (03:43→23:00)
[2020-06-15] MEDS: InsuLIN REG 1unit/0.01ml Soln (100units/ml) SC SCH ×6 (04:00→20:00)
[2020-06-15] MEDS: PHENYLEPHRINE IV 250 ML IV SCH ×4 (04:00→17:10)
[2020-06-15] MEDS: ACCU-CHEK COMFORT CURVE STRIP VI SCH ×6 (04:00→20:00)
[2020-06-15 04:06] LABS: Hematocrit 48.1 % (41.0-53.0); Mean Corpuscular Hemoglobin 30.1 pg (28.0-32.0); Mean Corpuscular Hgb Conc. 33.2 g/dL (32.0-36.0); Mean Corpuscular Volume 90.7 fL (80.0-100.0); Red Cell Distribution Width 13.3 % (11.8-14.3)
[2020-06-15 04:10] LABS: Basophils % (manual) 0 (0.0-2.0); Blast Cells 0; Metamyelocytes % 0; Myelocytes % 0; Promyelocytes % 0; Reactive Lymphocytes 0
[2020-06-15 04:17] LABS: Albumin 2.8 g/dL (3.4-5.0); Calcium 8.1 mg/dL (8.5-10.1)
[2020-06-15 04:21] LABS: BUN/Creatinine Ratio 12.6; Total Protein 6.8 g/dL (6.4-8.2)
[2020-06-15 04:41] LABS: Band Neutrophils % (manual) 2; Eosinophils % (manual) 1 (0-7); Lymphocytes % (manual) 6 (10.0-50.0); Monocytes % (manual) 3 (0-12)
[2020-06-15] MEDS ORDERED: SODIUM BICARBONATE 8.4% INJ 50ML SYRINGE ONE ×2 (05:09→05:14)
[2020-06-15] MEDS: SODIUM BICARBONATE 8.4 % INJ 50ML VIAL IV SCH ×5 (05:16→15:57)
[2020-06-15] MEDS: PIPERACILLIN-TAZO 4.5GM 100 ML IV SCH (06:18)
[2020-06-15] MEDS: INSULIN LANTUS (GLARGINE) 1 /0.01ml (100units/ml) SC SCH ×2 (06:18→22:00)
[2020-06-15] MEDS: FAMOTIDINE (10MG/ML) 2ML VL IV SCH ×2 (08:53→20:55)
[2020-06-15] MEDS: ASCORBIC ACID 1,000 MG TAB PO SCH (10:00)
[2020-06-15] MEDS: CHOLECALCIFEROL (VITD3) 2,000 UNIT CAP/TAB PO SCH (10:00)
[2020-06-15] MEDS: ZINC SULFATE 220mg CAP or TAB PO SCH (10:00)
[2020-06-15] MEDS: CYCLOSPORINE MODIFIED PO SCH ×2 (10:00→20:55)
[2020-06-15] MEDS: ENOXAPARIN SOD 80 MG/0.8ML SYRINGE SC SCH ×2 (10:00→22:21)
[2020-06-15] MEDS: ACETAMINOPHEN 500 MG TAB PO PRN (11:00)
[2020-06-15] MEDS: ATRACURIUM BESYLATE 1,000 MG in D5W 5% 150 ML IV SCH (16:17)
[2020-06-15] MEDS: LINEZOLID 600MG/300ML 300 ML IV SCH (16:17)
[2020-06-15] MEDS: CEFEPIME 2 GM in D5W 5% 50 ML IV SCH (18:18)
[2020-06-16] VITALS (101 sets, daily range): BP systolic 94–153; BP diastolic 41–68
[2020-06-16] MEDS: CEFEPIME 2 GM in D5W 5% 50 ML IV SCH ×2 (00:09→11:53)
[2020-06-16] MEDS: ACCU-CHEK COMFORT CURVE STRIP VI SCH ×6 (00:09→20:00)
[2020-06-16] MEDS: InsuLIN REG 1unit/0.01ml Soln (100units/ml) SC SCH ×6 (04:00→20:00)
[2020-06-16] MEDS: INSULIN LANTUS (GLARGINE) 1 /0.01ml (100units/ml) SC SCH ×2 (04:10→22:00)
[2020-06-16 04:59] LABS: Basophils # (auto) 0.1 10 ^3/uL (0-0.2); Basophils % (auto) 0.3 % (0.0-2.0); Eosinophils # (auto) 0.4 10 ^3/uL (0-0.8); Eosinophils % (auto) 1.8 % (0.0-7.0); Hematocrit 37.2 % (41.0-53.0); Lymphocytes # (auto) 1.4 10 ^3/uL (0.4-5.4); Lymphocytes % (auto) 5.9 % (10.0-50.0); Mean Corpuscular Hemoglobin 30.9 pg (28.0-32.0); Mean Corpuscular Hgb Conc. 34.9 g/dL (32.0-36.0); Mean Corpuscular Volume 88.7 fL (80.0-100.0); Monocytes # (auto) 0.8 10 ^3/uL (0-1.3); Monocytes % (auto) 3.4 % (0.0-12.0); Neutrophils # (auto) 21.3 10 ^3/uL (1.6-8.6); Neutrophils % (auto) 88.6 % (37.0-80.0); Red Blood Cells 4.19 10^6/uL (4.5-5.90); Red Cell Distribution Width 13.4 % (11.8-14.3); White Blood Cell 24.1 10^3/uL (4.4-10.8)
[2020-06-16 05:05] LABS: Calcium 6.8 mg/dL (8.5-10.1); Potassium 4.6 mmol/L (3.5-5.1)
[2020-06-16 05:08] LABS: BUN/Creatinine Ratio 8.3
[2020-06-16 05:13] LABS: Lactic Acid w/Reflex 2.6 mmol/L (0.4-2.0)
[2020-06-16] MEDS: LINEZOLID 600MG/300ML 300 ML IV SCH ×2 (06:00→17:29)
[2020-06-16] MEDS: BUDESONIDE (INHALATION) 0.5 MG/2 ML NEB NEB SCH ×2 (06:15→22:00)
[2020-06-16] MEDS: ALBUTEROL SULF 2.5 MG/0.5ML(0.5%) NEB SOLN NEB SCH ×3 (06:15→22:00)
[2020-06-16] MEDS: MIDAZOLAM DRIP 50 mg/50mL 50 ML IV SCH ×2 (08:44→16:45)
[2020-06-16] MEDS: PHENYLEPHRINE IV 250 ML IV SCH ×2 (09:25→17:29)
[2020-06-16] MEDS: CYCLOSPORINE MODIFIED PO SCH ×2 (10:00→22:00)
[2020-06-16] MEDS: ZINC SULFATE 220mg CAP or TAB PO SCH (10:00)
[2020-06-16] MEDS: CHOLECALCIFEROL (VITD3) 2,000 UNIT CAP/TAB PO SCH (10:00)
[2020-06-16] MEDS: ASCORBIC ACID 1,000 MG TAB PO SCH (10:00)
[2020-06-16] MEDS: ENOXAPARIN SOD 80 MG/0.8ML SYRINGE SC SCH ×2 (10:05→22:00)
[2020-06-16] MEDS: FAMOTIDINE (10MG/ML) 2ML VL IV SCH ×2 (10:06→22:00)
[2020-06-16] MEDS: PROPOFOL 100 ML IV SCH (11:23)
[2020-06-16] MEDS: ATRACURIUM BESYLATE 1,000 MG in D5W 5% 150 ML IV SCH (13:19)
[2020-06-16] MEDS: fentaNYL Drip 2500mCg/250mlNS 250 ML IV SCH (14:04)
[2020-06-17] VITALS (100 sets, daily range): BP systolic 80–145; BP diastolic 35–66
[2020-06-17] MEDS: NOREPINEPHRINE 8 MG/250ML KIT 250 ML IV SCH ×2 (00:25→18:26)
[2020-06-17] MEDS: MIDAZOLAM DRIP 50 mg/50mL 50 ML IV SCH ×6 (00:26→20:00)
[2020-06-17] MEDS: PROPOFOL 100 ML IV SCH ×2 (00:27→18:27)
[2020-06-17 03:48] LABS: Basophils # (auto) 0 10 ^3/uL (0-0.2); Basophils % (auto) 0.2 % (0.0-2.0); Eosinophils # (auto) 0 10 ^3/uL (0-0.8); Eosinophils % (auto) 0.2 % (0.0-7.0); Hematocrit 35.8 % (41.0-53.0); Hemoglobin 11.9 g/dL (13.5-17.5); Lymphocytes # (auto) 0.5 10 ^3/uL (0.4-5.4); Lymphocytes % (auto) 1.9 % (10.0-50.0); Mean Corpuscular Hgb Conc. 33.2 g/dL (32.0-36.0); Mean Corpuscular Volume 90.3 fL (80.0-100.0); Neutrophils # (auto) 22.7 10 ^3/uL (1.6-8.6); Neutrophils % (auto) 93.7 % (37.0-80.0); Red Blood Cells 3.96 10^6/uL (4.5-5.90); Red Cell Distribution Width 13.6 % (11.8-14.3); White Blood Cell 24.2 10^3/uL (4.4-10.8)
[2020-06-17] MEDS: InsuLIN REG 1unit/0.01ml Soln (100units/ml) SC SCH ×7 (04:00→23:54)
[2020-06-17] MEDS: ACCU-CHEK COMFORT CURVE STRIP VI SCH ×7 (04:00→23:38)
[2020-06-17 04:07] LABS: BUN/Creatinine Ratio 7.6; Calcium 6.7 mg/dL (8.5-10.1); Potassium 5.2 mmol/L (3.5-5.1)
[2020-06-17] MEDS: fentaNYL Drip 2500mCg/250mlNS 250 ML IV SCH ×2 (04:49→13:34)
[2020-06-17] MEDS: ALBUTEROL SULF 2.5 MG/0.5ML(0.5%) NEB SOLN NEB SCH ×3 (06:00→22:36)
[2020-06-17] MEDS: LINEZOLID 600MG/300ML 300 ML IV SCH ×2 (06:00→17:41)
[2020-06-17] MEDS: BUDESONIDE (INHALATION) 0.5 MG/2 ML NEB NEB SCH ×2 (06:00→22:36)
[2020-06-17] MEDS: PHENYLEPHRINE IV 250 ML IV SCH ×3 (08:00→18:45)
[2020-06-17] MEDS: INSULIN LANTUS (GLARGINE) 1 /0.01ml (100units/ml) SC SCH ×2 (08:15→21:48)
[2020-06-17] MEDS: ENOXAPARIN SOD 80 MG/0.8ML SYRINGE SC SCH ×2 (11:15→21:44)
[2020-06-17] MEDS ORDERED: DEXTROSE (50%) 50ML SYRG IV ONE (11:15)
[2020-06-17] MEDS ORDERED: ALBUTEROL SULF 2.5 MG/0.5ML(0.5%) NEB SOLN NEB ONE (11:15)
[2020-06-17] MEDS ORDERED: SODIUM BICARBONATE 8.4% INJ 50ML SYRINGE IV ONE (11:15)
[2020-06-17] MEDS ORDERED: InsuLIN REG 1unit/0.01ml Soln (100units/ml) IV ONE (11:15)
[2020-06-17] MEDS ORDERED: SODIUM ZIRCONIUM CYCL 10 GM PAK PO ONE (11:30)
[2020-06-17] MEDS: CHOLECALCIFEROL (VITD3) 2,000 UNIT CAP/TAB PO SCH (11:50)
[2020-06-17] MEDS: ASCORBIC ACID 1,000 MG TAB PO SCH (11:50)
[2020-06-17] MEDS: FAMOTIDINE (10MG/ML) 2ML VL IV SCH ×2 (11:50→21:44)
[2020-06-17] MEDS: ZINC SULFATE 220mg CAP or TAB PO SCH (11:50)
[2020-06-17] MEDS ORDERED: SODIUM CHLORIDE 0.9 % NEB SOLN 3ML NEB ONE (11:54)
[2020-06-17] MEDS: CEFEPIME 2 GM in D5W 5% 50 ML IV SCH (12:00)
[2020-06-17] MEDS: SODIUM BICARBONATE 50ML VIAL 150 ML in D5W 5% 1,000 ML IV SCH ×2 (13:26→23:00)
[2020-06-17] MEDS: SODIUM ZIRCONIUM CYCL 10 GM PAK PO SCH ×2 (14:10→21:44)
[2020-06-17] MEDS: ATRACURIUM BESYLATE 1,000 MG in D5W 5% 150 ML IV SCH (15:00)
[2020-06-17] MEDS ORDERED: BUMETANIDE 2.5mg/10ml (0.25 mg/ml) INJ IV ONE (18:30)
[2020-06-17] MEDS: ACETAMINOPHEN 500 MG TAB PO PRN (21:45)
[2020-06-18] VITALS (97 sets, daily range): BP systolic 89–144; BP diastolic 38–70
[2020-06-18] MEDS: PROPOFOL 100 ML IV SCH ×2 (01:29→09:30)
[2020-06-18] MEDS: MIDAZOLAM DRIP 50 mg/50mL 50 ML IV SCH ×2 (01:29→10:45)
[2020-06-18] MEDS: PHENYLEPHRINE IV 250 ML IV SCH ×3 (03:05→18:01)
[2020-06-18 03:23] LABS: Basophils # (auto) 0 10 ^3/uL (0-0.2); Basophils % (auto) 0.1 % (0.0-2.0); Eosinophils # (auto) 0 10 ^3/uL (0-0.8); Eosinophils % (auto) 0.1 % (0.0-7.0); Hematocrit 30.4 % (41.0-53.0); Hemoglobin 10.2 g/dL (13.5-17.5); Lymphocytes # (auto) 0.6 10 ^3/uL (0.4-5.4); Mean Corpuscular Hemoglobin 30.2 pg (28.0-32.0); Mean Corpuscular Hgb Conc. 33.6 g/dL (32.0-36.0); Mean Corpuscular Volume 89.7 fL (80.0-100.0); Monocytes # (auto) 1.2 10 ^3/uL (0-1.3); Monocytes % (auto) 6.5 % (0.0-12.0); Neutrophils # (auto) 17.4 10 ^3/uL (1.6-8.6); Neutrophils % (auto) 90.3 % (37.0-80.0); Red Blood Cells 3.38 10^6/uL (4.5-5.90); Red Cell Distribution Width 13.5 % (11.8-14.3); White Blood Cell 19.3 10^3/uL (4.4-10.8)
[2020-06-18] MEDS: ACCU-CHEK COMFORT CURVE STRIP VI SCH ×5 (03:24→20:00)
[2020-06-18] MEDS: InsuLIN REG 1unit/0.01ml Soln (100units/ml) SC SCH ×5 (03:24→20:00)
[2020-06-18 03:42] LABS: BUN/Creatinine Ratio 7.2; Calcium 6.2 mg/dL (8.5-10.1); Potassium 4.7 mmol/L (3.5-5.1)
[2020-06-18] MEDS: LINEZOLID 600MG/300ML 300 ML IV SCH ×2 (06:00→17:19)
[2020-06-18] MEDS: BUDESONIDE (INHALATION) 0.5 MG/2 ML NEB NEB SCH (06:00)
[2020-06-18] MEDS: INSULIN LANTUS (GLARGINE) 1 /0.01ml (100units/ml) SC SCH ×2 (06:13→22:00)
[2020-06-18] MEDS: SODIUM ZIRCONIUM CYCL 10 GM PAK PO SCH ×3 (06:13→22:00)
[2020-06-18] MEDS: ALBUTEROL SULF 2.5 MG/0.5ML(0.5%) NEB SOLN NEB SCH ×2 (06:15→06:25)
[2020-06-18] MEDS: FAMOTIDINE (10MG/ML) 2ML VL IV SCH ×2 (09:12→22:00)
[2020-06-18] MEDS: ASCORBIC ACID 1,000 MG TAB PO SCH (09:12)
[2020-06-18] MEDS: CHOLECALCIFEROL (VITD3) 2,000 UNIT CAP/TAB PO SCH (09:12)
[2020-06-18] MEDS: ENOXAPARIN SOD 80 MG/0.8ML SYRINGE SC SCH ×2 (09:12→22:00)
[2020-06-18] MEDS: ZINC SULFATE 220mg CAP or TAB PO SCH (09:12)
[2020-06-18] MEDS: NOREPINEPHRINE 8 MG/250ML KIT 250 ML IV SCH (09:13)
[2020-06-18] MEDS: CEFEPIME 2 GM in D5W 5% 50 ML IV SCH (10:13)
[2020-06-18] MEDS: SODIUM BICARBONATE 50ML VIAL 150 ML in D5W 5% 1,000 ML IV SCH ×2 (10:30→22:00)
[2020-06-18] MEDS: fentaNYL Drip 2500mCg/250mlNS 250 ML IV SCH (14:00)
[2020-06-18] MEDS: ATRACURIUM BESYLATE 1,000 MG in D5W 5% 150 ML IV SCH (16:53)
[2020-06-18] MEDS ORDERED: BUMETANIDE 2.5mg/10ml (0.25 mg/ml) INJ IV ONE (20:30)
[2020-06-19] VITALS (102 sets, daily range): BP systolic 88–161; BP diastolic 45–83
[2020-06-19] MEDS: fentaNYL Drip 2500mCg/250mlNS 250 ML IV SCH (01:17)
[2020-06-19] MEDS: ALBUTEROL SULF 2.5 MG/0.5ML(0.5%) NEB SOLN NEB SCH ×3 (01:20→22:47)
[2020-06-19] MEDS: BUDESONIDE (INHALATION) 0.5 MG/2 ML NEB NEB SCH ×3 (01:20→22:47)
[2020-06-19] MEDS: ACCU-CHEK COMFORT CURVE STRIP VI SCH ×5 (04:00→18:00)
[2020-06-19] MEDS: InsuLIN REG 1unit/0.01ml Soln (100units/ml) SC SCH ×5 (04:00→18:00)
[2020-06-19] MEDS: PHENYLEPHRINE IV 250 ML IV SCH ×3 (04:05→20:45)
[2020-06-19] MEDS: LINEZOLID 600MG/300ML 300 ML IV SCH ×2 (05:49→18:00)
[2020-06-19] MEDS: SODIUM ZIRCONIUM CYCL 10 GM PAK PO SCH (05:50)
[2020-06-19] MEDS: INSULIN LANTUS (GLARGINE) 1 /0.01ml (100units/ml) SC SCH ×2 (05:50→21:31)
[2020-06-19] MEDS ORDERED: BUMETANIDE 2.5mg/10ml (0.25 mg/ml) INJ IV SCH (06:00)
[2020-06-19 06:06] LABS: Basophils # (auto) 0 10 ^3/uL (0-0.2); Basophils % (auto) 0.2 % (0.0-2.0); Eosinophils # (auto) 0.1 10 ^3/uL (0-0.8); Eosinophils % (auto) 0.5 % (0.0-7.0); Hematocrit 27.8 % (41.0-53.0); Hemoglobin 9.5 g/dL (13.5-17.5); Lymphocytes # (auto) 1.1 10 ^3/uL (0.4-5.4); Lymphocytes % (auto) 5.8 % (10.0-50.0); Mean Corpuscular Hemoglobin 30.2 pg (28.0-32.0); Mean Corpuscular Hgb Conc. 34.2 g/dL (32.0-36.0); Mean Corpuscular Volume 88.3 fL (80.0-100.0); Monocytes # (auto) 1.8 10 ^3/uL (0-1.3); Monocytes % (auto) 9.7 % (0.0-12.0); Neutrophils # (auto) 15.3 10 ^3/uL (1.6-8.6); Neutrophils % (auto) 83.8 % (37.0-80.0); Red Blood Cells 3.15 10^6/uL (4.5-5.90); Red Cell Distribution Width 13.7 % (11.8-14.3); White Blood Cell 18.3 10^3/uL (4.4-10.8)
[2020-06-19 06:22] LABS: Potassium 4.4 mmol/L (3.5-5.1)
[2020-06-19 06:34] LABS: BUN/Creatinine Ratio 7.5
[2020-06-19 06:49] LABS: Calcium 5.6 mg/dL (8.5-10.1)
[2020-06-19] MEDS: MIDAZOLAM DRIP 50 mg/50mL 50 ML IV SCH ×2 (08:00→11:30)
[2020-06-19] MEDS ORDERED: SODIUM CHL 0.9% 1000 ML BAG XX ONE (09:00)
[2020-06-19] MEDS: SODIUM BICARBONATE 50ML VIAL 150 ML in D5W 5% 1,000 ML IV SCH (09:30)
[2020-06-19] MEDS: FAMOTIDINE (10MG/ML) 2ML VL IV SCH ×2 (09:49→21:31)
[2020-06-19] MEDS: CHOLECALCIFEROL (VITD3) 2,000 UNIT CAP/TAB PO SCH (09:53)
[2020-06-19] MEDS: ZINC SULFATE 220mg CAP or TAB PO SCH (09:53)
[2020-06-19] MEDS: ASCORBIC ACID 1,000 MG TAB PO SCH (09:53)
[2020-06-19] MEDS: PANTOPRAZOLE 40 MG/10 ML VIAL INJ IV SCH ×2 (10:00→21:31)
[2020-06-19] MEDS ORDERED: HEPARIN SODIUM (PORCINE) 5000 UNITS/ML 1ML VIAL ONE (10:30)
[2020-06-19 12:38] LABS: INR 1.03 (0.9-1.15)
[2020-06-19] MEDS: NOREPINEPHRINE 8 MG/250ML KIT 250 ML IV SCH ×2 (13:30→23:25)
[2020-06-19] MEDS: CEFEPIME 2 GM in D5W 5% 50 ML IV SCH (14:02)
[2020-06-19] MEDS ORDERED: ALBUMIN 25% 100 ML IV ONE (16:45)
[2020-06-19] MEDS ORDERED: CALCIUM GLUC 4.65meq/50ml D5AE 50 ML IV ONE (17:00)
[2020-06-19] MEDS: ATRACURIUM BESYLATE 1,000 MG in D5W 5% 150 ML IV SCH (17:25)
[2020-06-19] MEDS ORDERED: HEPARIN 1,000 UNITS/ml 1ML VIAL IV ONE (18:45)
[2020-06-19] MEDS: PROPOFOL 100 ML IV SCH (21:30)
[2020-06-20] VITALS (101 sets, daily range): BP systolic 89–187; BP diastolic 31–111
[2020-06-20 03:02] LABS: Mean Corpuscular Hemoglobin 30.7 pg (28.0-32.0); Mean Corpuscular Hgb Conc. 34.6 g/dL (32.0-36.0); Mean Corpuscular Volume 88.5 fL (80.0-100.0); Red Blood Cells 2.93 10^6/uL (4.5-5.90); Red Cell Distribution Width 13.6 % (11.8-14.3); White Blood Cell 14.5 10^3/uL (4.4-10.8)
[2020-06-20 03:09] LABS: Basophils % (manual) 0 (0.0-2.0); Blast Cells 0; Metamyelocytes % 0; Myelocytes % 0; Promyelocytes % 0; Reactive Lymphocytes 0
[2020-06-20 03:14] LABS: BUN/Creatinine Ratio 6.8
[2020-06-20] MEDS: PHENYLEPHRINE IV 250 ML IV SCH ×3 (05:05→19:43)
[2020-06-20] MEDS: InsuLIN REG 1unit/0.01ml Soln (100units/ml) SC SCH ×4 (06:00→18:10)
[2020-06-20] MEDS: ACCU-CHEK COMFORT CURVE STRIP VI SCH ×4 (06:00→18:00)
[2020-06-20] MEDS: LINEZOLID 600MG/300ML 300 ML IV SCH ×2 (06:00→17:26)
[2020-06-20] MEDS: ALBUTEROL SULF 2.5 MG/0.5ML(0.5%) NEB SOLN NEB SCH ×3 (06:47→22:35)
[2020-06-20] MEDS: BUDESONIDE (INHALATION) 0.5 MG/2 ML NEB NEB SCH ×2 (06:47→22:35)
[2020-06-20] MEDS ORDERED: SODIUM CHL 3% 500 ML IV ONE (07:00)
[2020-06-20] MEDS ORDERED: CALCIUM GLUC 4.65meq/50ml D5AE 50 ML IV ONE (07:00)
[2020-06-20] MEDS: INSULIN LANTUS (GLARGINE) 1 /0.01ml (100units/ml) SC SCH ×2 (07:00→19:44)
[2020-06-20 07:05] LABS: Band Neutrophils % (manual) 6; Eosinophils % (manual) 1 (0-7); Lymphocytes % (manual) 2 (10.0-50.0); Monocytes % (manual) 8 (0-12)
[2020-06-20] MEDS: MIDAZOLAM DRIP 50 mg/50mL 50 ML IV SCH ×4 (08:00→22:48)
[2020-06-20] MEDS: PROPOFOL 100 ML IV SCH ×4 (08:00→22:48)
[2020-06-20] MEDS: ENOXAPARIN SOD 80 MG/0.8ML SYRINGE SC SCH (10:00)
[2020-06-20] MEDS: ASCORBIC ACID 1,000 MG TAB PO SCH (10:00)
[2020-06-20] MEDS: ZINC SULFATE 220mg CAP or TAB PO SCH (10:00)
[2020-06-20] MEDS: CHOLECALCIFEROL (VITD3) 2,000 UNIT CAP/TAB PO SCH (10:00)
[2020-06-20] MEDS: FAMOTIDINE (10MG/ML) 2ML VL IV SCH ×2 (10:00→22:46)
[2020-06-20] MEDS: PANTOPRAZOLE 40 MG/10 ML VIAL INJ IV SCH ×2 (10:00→22:46)
[2020-06-20] MEDS ORDERED: SODIUM CHLORIDE 0.9% 500 ML IV ONE (11:45)
[2020-06-20 12:55] LABS: Lactic Acid w/Reflex 2.1 mmol/L (0.4-2.0)
[2020-06-20] MEDS: CEFEPIME 2 GM in D5W 5% 50 ML IV SCH (12:55)
[2020-06-20] MEDS ORDERED: Glucerna 1.2 Cal 1Liter BOTTLE GT SCH (14:30)
[2020-06-20] MEDS: fentaNYL Drip 2500mCg/250mlNS 250 ML IV SCH (15:00)
[2020-06-20] MEDS: ATRACURIUM BESYLATE 1,000 MG in D5W 5% 150 ML IV SCH (16:30)
[2020-06-20] MEDS: NOREPINEPHRINE 8 MG/250ML KIT 250 ML IV SCH (22:00)
[2020-06-21] VITALS (100 sets, daily range): BP systolic 82–129; BP diastolic 43–66
[2020-06-21] MEDS: fentaNYL Drip 2500mCg/250mlNS 250 ML IV SCH (03:07)
[2020-06-21] MEDS: MIDAZOLAM DRIP 50 mg/50mL 50 ML IV SCH ×3 (03:08→22:00)
[2020-06-21] MEDS: NOREPINEPHRINE 8 MG/250ML KIT 250 ML IV SCH ×4 (03:09→23:55)
[2020-06-21] MEDS: PROPOFOL 100 ML IV SCH ×3 (04:02→22:00)
[2020-06-21] MEDS: ACCU-CHEK COMFORT CURVE STRIP VI SCH ×5 (06:00→23:52)
[2020-06-21] MEDS: InsuLIN REG 1unit/0.01ml Soln (100units/ml) SC SCH ×4 (06:00→17:44)
[2020-06-21] MEDS: PHENYLEPHRINE IV 250 ML IV SCH ×3 (06:05→22:45)
[2020-06-21 06:14] LABS: Hematocrit 28.7 % (41.0-53.0); Hemoglobin 9.8 g/dL (13.5-17.5); Mean Corpuscular Hemoglobin 31.1 pg (28.0-32.0); Mean Corpuscular Hgb Conc. 34.1 g/dL (32.0-36.0); Mean Corpuscular Volume 91.1 fL (80.0-100.0); Red Blood Cells 3.15 10^6/uL (4.5-5.90); White Blood Cell 22.9 10^3/uL (4.4-10.8)
[2020-06-21] MEDS: ALBUTEROL SULF 2.5 MG/0.5ML(0.5%) NEB SOLN NEB SCH ×3 (06:15→19:25)
[2020-06-21] MEDS: BUDESONIDE (INHALATION) 0.5 MG/2 ML NEB NEB SCH ×2 (06:15→19:25)
[2020-06-21 06:21] LABS: BUN/Creatinine Ratio 7.3; Calcium 7.1 mg/dL (8.5-10.1)
[2020-06-21 06:23] LABS: Potassium 5.7 mmol/L (3.5-5.1)
[2020-06-21 06:43] LABS: Band Neutrophils % (manual) 0; Basophils % (manual) 0 (0.0-2.0); Blast Cells 0; Eosinophils % (manual) 0 (0-7); Myelocytes % 0; Promyelocytes % 0; Reactive Lymphocytes 0
[2020-06-21] MEDS: ALBUMIN 25% 100 ML IV SCH ×2 (07:00→08:00)
[2020-06-21] MEDS: INSULIN LANTUS (GLARGINE) 1 /0.01ml (100units/ml) SC SCH ×2 (07:00→22:00)
[2020-06-21 08:46] LABS: Lymphocytes % (manual) 5 (10.0-50.0); Metamyelocytes % 1; Monocytes % (manual) 10 (0-12)
[2020-06-21] MEDS: LINEZOLID 600MG/300ML 300 ML IV SCH ×2 (10:00→16:56)
[2020-06-21] MEDS: CHOLECALCIFEROL (VITD3) 2,000 UNIT CAP/TAB PO SCH (10:17)
[2020-06-21] MEDS: PANTOPRAZOLE 40 MG/10 ML VIAL INJ IV SCH ×2 (10:17→23:51)
[2020-06-21] MEDS: ASCORBIC ACID 1,000 MG TAB PO SCH (10:17)
[2020-06-21] MEDS: ENOXAPARIN SOD 80 MG/0.8ML SYRINGE SC SCH (10:17)
[2020-06-21] MEDS: FAMOTIDINE (10MG/ML) 2ML VL IV SCH (10:17)
[2020-06-21] MEDS: ZINC SULFATE 220mg CAP or TAB PO SCH (10:17)
[2020-06-21] MEDS: CEFEPIME 2 GM in D5W 5% 50 ML IV SCH (12:00)
[2020-06-21] MEDS: ATRACURIUM BESYLATE 1,000 MG in D5W 5% 150 ML IV SCH (13:05)
[2020-06-21] MEDS: CALCIUM ACETATE 667 MG CAP GT SCH ×2 (14:00→22:00)
[2020-06-22] VITALS (98 sets, daily range): BP systolic 79–129; BP diastolic 46–81
[2020-06-22] MEDS: fentaNYL Drip 2500mCg/250mlNS 250 ML IV SCH (01:31)
[2020-06-22] MEDS: PHENYLEPHRINE IV 250 ML IV SCH ×3 (04:00→15:25)
[2020-06-22 04:06] LABS: Hematocrit 27.6 % (41.0-53.0); Hemoglobin 9.2 g/dL (13.5-17.5); Mean Corpuscular Hemoglobin 30.3 pg (28.0-32.0); Mean Corpuscular Hgb Conc. 33.1 g/dL (32.0-36.0); Mean Corpuscular Volume 91.5 fL (80.0-100.0); Red Blood Cells 3.02 10^6/uL (4.5-5.90); Red Cell Distribution Width 14.4 % (11.8-14.3); White Blood Cell 24.1 10^3/uL (4.4-10.8)
[2020-06-22 04:11] LABS: Basophils % (manual) 0 (0.0-2.0); Blast Cells 0; Eosinophils % (manual) 0 (0-7); Metamyelocytes % 0; Promyelocytes % 0; Reactive Lymphocytes 0
[2020-06-22 04:26] LABS: Potassium 4.8 mmol/L (3.5-5.1)
[2020-06-22 04:28] LABS: BUN/Creatinine Ratio 7.2
[2020-06-22 04:46] LABS: Band Neutrophils % (manual) 32; Lymphocytes % (manual) 2 (10.0-50.0); Monocytes % (manual) 10 (0-12); Myelocytes % 2
[2020-06-22] MEDS: InsuLIN REG 1unit/0.01ml Soln (100units/ml) SC SCH ×4 (06:00→17:42)
[2020-06-22] MEDS: ACCU-CHEK COMFORT CURVE STRIP VI SCH ×3 (06:00→17:42)
[2020-06-22] MEDS: CALCIUM ACETATE 667 MG CAP GT SCH ×3 (06:00→22:54)
[2020-06-22] MEDS: ALBUTEROL SULF 2.5 MG/0.5ML(0.5%) NEB SOLN NEB SCH ×2 (06:06→18:25)
[2020-06-22] MEDS: BUDESONIDE (INHALATION) 0.5 MG/2 ML NEB NEB SCH ×2 (06:06→18:25)
[2020-06-22] MEDS: INSULIN LANTUS (GLARGINE) 1 /0.01ml (100units/ml) SC SCH ×2 (06:25→22:00)
[2020-06-22] MEDS: LINEZOLID 600MG/300ML 300 ML IV SCH ×2 (06:26→18:11)
[2020-06-22] MEDS: NOREPINEPHRINE 8 MG/250ML KIT 250 ML IV SCH ×2 (08:02→22:55)
[2020-06-22] MEDS: MIDAZOLAM DRIP 50 mg/50mL 50 ML IV SCH ×2 (08:03→22:57)
[2020-06-22] MEDS: PANTOPRAZOLE 40 MG/10 ML VIAL INJ IV SCH ×2 (09:56→22:54)
[2020-06-22] MEDS: ZINC SULFATE 220mg CAP or TAB PO SCH (09:56)
[2020-06-22] MEDS: ASCORBIC ACID 1,000 MG TAB PO SCH (09:56)
[2020-06-22] MEDS: FAMOTIDINE (10MG/ML) 2ML VL IV SCH (09:56)
[2020-06-22] MEDS: CHOLECALCIFEROL (VITD3) 2,000 UNIT CAP/TAB PO SCH (09:57)
[2020-06-22] MEDS: ENOXAPARIN SOD 80 MG/0.8ML SYRINGE SC SCH (10:00)
[2020-06-22] MEDS: CEFEPIME 2 GM in D5W 5% 50 ML IV SCH (13:59)
[2020-06-22] MEDS: ATRACURIUM BESYLATE 1,000 MG in D5W 5% 150 ML IV SCH ×2 (16:29→22:56)
[2020-06-22] MEDS: ACETAMINOPHEN 500 MG TAB PO PRN (22:30)
[2020-06-22] MEDS: PROPOFOL 100 ML IV SCH (22:57)
[2020-06-23] VITALS (96 sets, daily range): BP systolic 79–186; BP diastolic 34–72
[2020-06-23] MEDS: ACCU-CHEK COMFORT CURVE STRIP VI SCH ×4 (00:12→18:18)
[2020-06-23] MEDS: InsuLIN REG 1unit/0.01ml Soln (100units/ml) SC SCH ×4 (00:13→18:18)
[2020-06-23] MEDS: MIDAZOLAM DRIP 50 mg/50mL 50 ML IV SCH ×3 (00:39→22:07)
[2020-06-23] MEDS: ACETAMINOPHEN 500 MG TAB PO PRN ×2 (00:45→23:15)
[2020-06-23] MEDS: fentaNYL Drip 2500mCg/250mlNS 250 ML IV SCH ×2 (05:54→15:40)
[2020-06-23] MEDS: LINEZOLID 600MG/300ML 300 ML IV SCH ×2 (06:00→18:53)
[2020-06-23] MEDS: CALCIUM ACETATE 667 MG CAP GT SCH ×3 (06:00→21:13)
[2020-06-23] MEDS: BUDESONIDE (INHALATION) 0.5 MG/2 ML NEB NEB SCH ×2 (06:10→19:23)
[2020-06-23] MEDS: ALBUTEROL SULF 2.5 MG/0.5ML(0.5%) NEB SOLN NEB SCH ×3 (06:10→19:23)
[2020-06-23] MEDS: INSULIN LANTUS (GLARGINE) 1 /0.01ml (100units/ml) SC SCH ×2 (07:00→21:17)
[2020-06-23 07:22] LABS: Hematocrit 26.4 % (41.0-53.0); Hemoglobin 8.8 g/dL (13.5-17.5); Mean Corpuscular Hemoglobin 30.6 pg (28.0-32.0); Mean Corpuscular Hgb Conc. 33.4 g/dL (32.0-36.0); Mean Corpuscular Volume 91.7 fL (80.0-100.0); Red Blood Cells 2.88 10^6/uL (4.5-5.90); White Blood Cell 25.9 10^3/uL (4.4-10.8)
[2020-06-23 07:33] LABS: Basophils % (manual) 0 (0.0-2.0); Blast Cells 0; Eosinophils % (manual) 0 (0-7); Reactive Lymphocytes 0
[2020-06-23 07:39] LABS: BUN/Creatinine Ratio 8.5; Calcium 6.9 mg/dL (8.5-10.1)
[2020-06-23 07:40] LABS: Potassium 5.8 mmol/L (3.5-5.1)
[2020-06-23] MEDS: PHENYLEPHRINE IV 250 ML IV SCH ×4 (08:05→21:41)
[2020-06-23] MEDS: ATRACURIUM BESYLATE 1,000 MG in D5W 5% 150 ML IV SCH ×3 (08:13→21:15)
[2020-06-23 08:32] LABS: Band Neutrophils % (manual) 2; Lymphocytes % (manual) 2 (10.0-50.0); Metamyelocytes % 3; Monocytes % (manual) 5 (0-12); Myelocytes % 2; Promyelocytes % 1
[2020-06-23] MEDS: PANTOPRAZOLE 40 MG/10 ML VIAL INJ IV SCH ×2 (08:40→21:13)
[2020-06-23] MEDS: FAMOTIDINE (10MG/ML) 2ML VL IV SCH (08:40)
[2020-06-23] MEDS: ZINC SULFATE 220mg CAP or TAB PO SCH (08:41)
[2020-06-23] MEDS: CHOLECALCIFEROL (VITD3) 2,000 UNIT CAP/TAB PO SCH (08:41)
[2020-06-23] MEDS: ENOXAPARIN SOD 80 MG/0.8ML SYRINGE SC SCH (08:41)
[2020-06-23] MEDS: ASCORBIC ACID 1,000 MG TAB PO SCH (08:41)
[2020-06-23] MEDS ORDERED: SODIUM CHL 0.9% 1000 ML BAG XX ONE (09:00)
[2020-06-23] MEDS: CEFEPIME 2 GM in D5W 5% 50 ML IV SCH (12:36)
[2020-06-23] MEDS: NOREPINEPHRINE 8 MG/250ML KIT 250 ML IV SCH ×2 (15:20→21:16)
[2020-06-23] MEDS: PROPOFOL 100 ML IV SCH (18:17)
[2020-06-24] VITALS (101 sets, daily range): BP systolic 71–147; BP diastolic 17–93
[2020-06-24] MEDS: InsuLIN REG 1unit/0.01ml Soln (100units/ml) SC SCH ×4 (00:15→17:27)
[2020-06-24] MEDS: ACCU-CHEK COMFORT CURVE STRIP VI SCH ×4 (00:16→17:27)
[2020-06-24] MEDS: PHENYLEPHRINE IV 250 ML IV SCH ×2 (00:57→05:45)
[2020-06-24] MEDS: NOREPINEPHRINE 8 MG/250ML KIT 250 ML IV SCH ×2 (00:57→05:45)
[2020-06-24] MEDS: fentaNYL Drip 2500mCg/250mlNS 250 ML IV SCH (05:00)
[2020-06-24] MEDS: CALCIUM ACETATE 667 MG CAP GT SCH ×3 (05:29→21:57)
[2020-06-24] MEDS: LINEZOLID 600MG/300ML 300 ML IV SCH ×2 (05:29→17:45)
[2020-06-24 06:04] LABS: Hematocrit 25.8 % (41.0-53.0); Hemoglobin 8.6 g/dL (13.5-17.5); Mean Corpuscular Hgb Conc. 33.4 g/dL (32.0-36.0); Mean Corpuscular Volume 92.8 fL (80.0-100.0); Red Blood Cells 2.78 10^6/uL (4.5-5.90); White Blood Cell 23.7 10^3/uL (4.4-10.8)
[2020-06-24 06:16] LABS: Basophils % (manual) 0 (0.0-2.0); Blast Cells 0; Promyelocytes % 0; Reactive Lymphocytes 0
[2020-06-24] MEDS: MIDAZOLAM DRIP 50 mg/50mL 50 ML IV SCH ×2 (06:18→19:30)
[2020-06-24] MEDS: BUDESONIDE (INHALATION) 0.5 MG/2 ML NEB NEB SCH ×2 (06:20→18:45)
[2020-06-24] MEDS: INSULIN LANTUS (GLARGINE) 1 /0.01ml (100units/ml) SC SCH ×2 (06:21→21:57)
[2020-06-24 06:23] LABS: BUN/Creatinine Ratio 8.2; Calcium 7.2 mg/dL (8.5-10.1)
[2020-06-24] MEDS: ALBUTEROL SULF 2.5 MG/0.5ML(0.5%) NEB SOLN NEB SCH ×2 (06:26→18:45)
[2020-06-24 06:51] LABS: Band Neutrophils % (manual) 42; Eosinophils % (manual) 1 (0-7); Lymphocytes % (manual) 6 (10.0-50.0); Metamyelocytes % 8; Monocytes % (manual) 10 (0-12); Myelocytes % 3
[2020-06-24] MEDS: PROPOFOL 100 ML IV SCH (06:55)
[2020-06-24] MEDS ORDERED: BUMETANIDE 2.5mg/10ml (0.25 mg/ml) INJ IV ONE (09:15)
[2020-06-24] MEDS: ENOXAPARIN SOD 80 MG/0.8ML SYRINGE SC SCH (10:00)
[2020-06-24] MEDS: FAMOTIDINE (10MG/ML) 2ML VL IV SCH (10:00)
[2020-06-24] MEDS: CHOLECALCIFEROL (VITD3) 2,000 UNIT CAP/TAB PO SCH (10:00)
[2020-06-24] MEDS: ASCORBIC ACID 1,000 MG TAB PO SCH (10:00)
[2020-06-24] MEDS: ZINC SULFATE 220mg CAP or TAB PO SCH (10:00)
[2020-06-24] MEDS: PANTOPRAZOLE 40 MG/10 ML VIAL INJ IV SCH ×2 (10:00→21:57)
[2020-06-24] MEDS: CEFEPIME 2 GM in SODIUM CHL 0.9% 50 ML IV SCH (12:11)
[2020-06-24] MEDS: NOREPINEPHRINE BITARTRATE 16 MG in SODIUM CHL 0.9% 234 ML IV SCH (14:00)
[2020-06-24] MEDS: PHENYLEPHRINE INJ 40 MG in SODIUM CHL 0.9% 246 ML IV SCH (16:40)
[2020-06-24] MEDS: VASOPRESSIN 50 UNITS in D5W 5% 247.5 ML IV SCH (17:00)
[2020-06-24] MEDS: BUMETANIDE 2.5mg/10ml (0.25 mg/ml) INJ IV SCH (17:44)
[2020-06-25] VITALS (100 sets, daily range): BP systolic 62–106; BP diastolic 19–66
[2020-06-25] MEDS: PHENYLEPHRINE INJ 40 MG in SODIUM CHL 0.9% 246 ML IV SCH ×3 (01:06→23:23)
[2020-06-25] MEDS: PROPOFOL 100 ML IV SCH ×2 (01:17→05:27)
[2020-06-25] MEDS: fentaNYL Drip 2500mCg/250mlNS 250 ML IV SCH (02:20)
[2020-06-25] MEDS: VASOPRESSIN 50 UNITS in D5W 5% 247.5 ML IV SCH (03:33)
[2020-06-25] MEDS: ATRACURIUM BESYLATE 1,000 MG in D5W 5% 150 ML IV SCH (03:34)
[2020-06-25 05:18] LABS: Hemoglobin 8.2 g/dL (13.5-17.5)
[2020-06-25 05:21] LABS: Hematocrit 24.4 % (41.0-53.0); Mean Corpuscular Hemoglobin 31.3 pg (28.0-32.0); Mean Corpuscular Hgb Conc. 33.5 g/dL (32.0-36.0); Mean Corpuscular Volume 93.2 fL (80.0-100.0); Red Blood Cells 2.62 10^6/uL (4.5-5.90); Red Cell Distribution Width 15.5 % (11.8-14.3); White Blood Cell 27.9 10^3/uL (4.4-10.8)
[2020-06-25] MEDS: CALCIUM ACETATE 667 MG CAP GT SCH ×3 (05:27→22:00)
[2020-06-25] MEDS: MIDAZOLAM DRIP 50 mg/50mL 50 ML IV SCH (05:28)
[2020-06-25] MEDS: BUMETANIDE 2.5mg/10ml (0.25 mg/ml) INJ IV SCH ×2 (05:28→17:38)
[2020-06-25] MEDS: InsuLIN REG 1unit/0.01ml Soln (100units/ml) SC SCH ×5 (05:28→23:12)
[2020-06-25] MEDS: ACCU-CHEK COMFORT CURVE STRIP VI SCH ×5 (05:29→23:12)
[2020-06-25] MEDS: INSULIN LANTUS (GLARGINE) 1 /0.01ml (100units/ml) SC SCH ×2 (05:29→22:58)
[2020-06-25 05:38] LABS: Calcium 7.1 mg/dL (8.5-10.1)
[2020-06-25 05:45] LABS: Potassium 5.7 mmol/L (3.5-5.1)
[2020-06-25] MEDS: ALBUTEROL SULF 2.5 MG/0.5ML(0.5%) NEB SOLN NEB SCH ×3 (06:15→21:57)
[2020-06-25] MEDS: BUDESONIDE (INHALATION) 0.5 MG/2 ML NEB NEB SCH ×2 (06:15→21:57)
[2020-06-25 06:30] LABS: Basophils % (manual) 0 (0.0-2.0); Blast Cells 0; Promyelocytes % 0; Reactive Lymphocytes 0
[2020-06-25] MEDS ORDERED: ALBUMIN 5% 250 ML IV ONE (06:45)
[2020-06-25 08:08] LABS: Band Neutrophils % (manual) 14; Eosinophils % (manual) 1 (0-7); Lymphocytes % (manual) 6 (10.0-50.0); Metamyelocytes % 5; Monocytes % (manual) 10 (0-12); Myelocytes % 1
[2020-06-25] MEDS: LINEZOLID 600MG/300ML 300 ML IV SCH ×2 (09:19→21:53)
[2020-06-25] MEDS: PANTOPRAZOLE 40 MG/10 ML VIAL INJ IV SCH ×2 (09:38→22:12)
[2020-06-25] MEDS: ZINC SULFATE 220mg CAP or TAB PO SCH (09:38)
[2020-06-25] MEDS: ASCORBIC ACID 1,000 MG TAB PO SCH (09:38)
[2020-06-25] MEDS: CHOLECALCIFEROL (VITD3) 2,000 UNIT CAP/TAB PO SCH (09:38)
[2020-06-25] MEDS: FAMOTIDINE (10MG/ML) 2ML VL IV SCH (09:38)
[2020-06-25] MEDS: ENOXAPARIN SOD 80 MG/0.8ML SYRINGE SC SCH (10:00)
[2020-06-25] MEDS: NOREPINEPHRINE BITARTRATE 16 MG in SODIUM CHL 0.9% 234 ML IV SCH ×3 (10:45→21:52)
[2020-06-25 11:16] LABS: Hepatitis A Ab IgM Negative; Hepatitis B Core IgM Negative; Hepatitis B Surface Antigen Negative (Negative); Hepatitis C Antibody Negative (Negative)
[2020-06-25] MEDS: EPINEPHrine HCL INJECTION 8 MG in D5W 5% 242 ML IV SCH (12:30)
[2020-06-25] MEDS: CEFEPIME 2 GM in SODIUM CHL 0.9% 50 ML IV SCH (12:55)
[2020-06-25] MEDS ORDERED: levoFLOXacin 500MG 100 ML IV ONE (13:15)
[2020-06-25] MEDS ORDERED: DOPamine 1600MCG/ML D5W 250 ML IV ONE (19:59)
[2020-06-26] VITALS (106 sets, daily range): BP systolic 57–99; BP diastolic 24–52
[2020-06-26] MEDS: EPINEPHrine HCL INJECTION 8 MG in D5W 5% 242 ML IV SCH ×2 (01:52→14:30)
[2020-06-26] MEDS: DOPamine 1600MCG/ML D5W 250 ML IV SCH ×4 (02:30→23:34)
[2020-06-26] MEDS: PHENYLEPHRINE INJ 40 MG in SODIUM CHL 0.9% 246 ML IV SCH ×5 (02:32→21:05)
[2020-06-26] MEDS: VASOPRESSIN 50 UNITS in D5W 5% 247.5 ML IV SCH ×2 (02:39→14:30)
[2020-06-26] MEDS: fentaNYL Drip 2500mCg/250mlNS 250 ML IV SCH ×2 (04:16→23:07)
[2020-06-26] MEDS: NOREPINEPHRINE BITARTRATE 16 MG in SODIUM CHL 0.9% 234 ML IV SCH ×3 (05:10→23:34)
[2020-06-26] MEDS: InsuLIN REG 1unit/0.01ml Soln (100units/ml) SC SCH ×4 (06:00→23:06)
[2020-06-26] MEDS: ACCU-CHEK COMFORT CURVE STRIP VI SCH ×4 (06:00→23:06)
[2020-06-26] MEDS: CALCIUM ACETATE 667 MG CAP GT SCH ×3 (06:00→21:04)
[2020-06-26] MEDS: BUMETANIDE 2.5mg/10ml (0.25 mg/ml) INJ IV SCH ×2 (06:00→17:56)
[2020-06-26] MEDS: ALBUTEROL SULF 2.5 MG/0.5ML(0.5%) NEB SOLN NEB SCH ×3 (06:02→22:40)
[2020-06-26] MEDS: BUDESONIDE (INHALATION) 0.5 MG/2 ML NEB NEB SCH ×2 (06:02→22:40)
[2020-06-26] MEDS: INSULIN LANTUS (GLARGINE) 1 /0.01ml (100units/ml) SC SCH ×2 (06:44→23:04)
[2020-06-26] MEDS: LINEZOLID 600MG/300ML 300 ML IV SCH ×2 (06:49→17:57)
[2020-06-26 06:50] LABS: Hematocrit 19.1 % (41.0-53.0); Mean Corpuscular Hemoglobin 30.7 pg (28.0-32.0); Mean Corpuscular Hgb Conc. 32.5 g/dL (32.0-36.0); Mean Corpuscular Volume 94.6 fL (80.0-100.0); Red Blood Cells 2.02 10^6/uL (4.5-5.90)
[2020-06-26 06:51] LABS: Calcium 7.2 mg/dL (8.5-10.1); Potassium 4.6 mmol/L (3.5-5.1)
[2020-06-26 06:54] LABS: BUN/Creatinine Ratio 8.8
[2020-06-26 07:24] LABS: Basophils % (manual) 0 (0.0-2.0); Blast Cells 0; Eosinophils % (manual) 0 (0-7); Hemoglobin 6.2 g/dL (13.5-17.5); Promyelocytes % 0; Reactive Lymphocytes 0
[2020-06-26 08:36] LABS: Band Neutrophils % (manual) 15; Lymphocytes % (manual) 13 (10.0-50.0); Metamyelocytes % 2; Monocytes % (manual) 8 (0-12); Myelocytes % 2
[2020-06-26] MEDS ORDERED: levoFLOXacin 500MG 100 ML IV SCH (09:00)
[2020-06-26] MEDS: ENOXAPARIN SOD 80 MG/0.8ML SYRINGE SC SCH (10:00)
[2020-06-26] MEDS: ZINC SULFATE 220mg CAP or TAB PO SCH (10:03)
[2020-06-26] MEDS: PANTOPRAZOLE 40 MG/10 ML VIAL INJ IV SCH ×2 (10:03→22:51)
[2020-06-26] MEDS: ASCORBIC ACID 1,000 MG TAB PO SCH (10:03)
[2020-06-26] MEDS: FAMOTIDINE (10MG/ML) 2ML VL IV SCH (10:03)
[2020-06-26] MEDS: CHOLECALCIFEROL (VITD3) 2,000 UNIT CAP/TAB PO SCH (10:03)
[2020-06-26] MEDS: CEFEPIME 2 GM in SODIUM CHL 0.9% 50 ML IV SCH (12:00)
[2020-06-26] MEDS: ATRACURIUM BESYLATE 1,000 MG in D5W 5% 150 ML IV SCH (16:30)
[2020-06-26] MEDS: MIDAZOLAM DRIP 50 mg/50mL 50 ML IV SCH (19:00)
[2020-06-26] MEDS: PROPOFOL 100 ML IV SCH (19:30)
[2020-06-26] MEDS ORDERED: EPINEPHrine HCL 250 ML IV ONE (19:45)
[2020-06-26] MEDS ORDERED: SODIUM BICARBONATE 8.4% INJ 50ML SYRINGE ONE (20:36)
[2020-06-26] MEDS ORDERED: SODIUM BICARBONATE 8.4 % INJ 50ML VIAL IV ONE (20:45)
[2020-06-27] VITALS (27 sets, daily range): BP systolic 45–96; BP diastolic 28–52
[2020-06-27] MEDS: PHENYLEPHRINE INJ 40 MG in SODIUM CHL 0.9% 246 ML IV SCH ×2 (00:58→04:46)
[2020-06-27] MEDS: VASOPRESSIN 50 UNITS in D5W 5% 247.5 ML IV SCH (03:04)
[2020-06-27 04:44] LABS: Hematocrit 29.3 % (41.0-53.0); Hemoglobin 9.8 g/dL (13.5-17.5); Mean Corpuscular Hgb Conc. 33.6 g/dL (32.0-36.0); Mean Corpuscular Volume 92.3 fL (80.0-100.0); Red Blood Cells 3.17 10^6/uL (4.5-5.90); Red Cell Distribution Width 15.1 % (11.8-14.3); White Blood Cell 15.2 10^3/uL (4.4-10.8)
[2020-06-27] MEDS: DOPamine 1600MCG/ML D5W 250 ML IV SCH (04:47)
[2020-06-27 04:53] LABS: BUN/Creatinine Ratio 10.4; Calcium 7.6 mg/dL (8.5-10.1); Potassium 4.6 mmol/L (3.5-5.1)
[2020-06-27 04:56] LABS: Basophils % (manual) 0 (0.0-2.0); Blast Cells 0; Eosinophils % (manual) 0 (0-7); Promyelocytes % 0; Reactive Lymphocytes 0
[2020-06-27] MEDS: CALCIUM ACETATE 667 MG CAP GT SCH (05:22)
[2020-06-27] MEDS: BUMETANIDE 2.5mg/10ml (0.25 mg/ml) INJ IV SCH (05:23)
[2020-06-27] MEDS: LINEZOLID 600MG/300ML 300 ML IV SCH (05:27)
[2020-06-27 05:35] LABS: Band Neutrophils % (manual) 15; Lymphocytes % (manual) 14 (10.0-50.0); Metamyelocytes % 1; Monocytes % (manual) 9 (0-12); Myelocytes % 7
[2020-06-27] MEDS: ACCU-CHEK COMFORT CURVE STRIP VI SCH (06:00)
[2020-06-27] MEDS: InsuLIN REG 1unit/0.01ml Soln (100units/ml) SC SCH (06:19)
[2020-06-27] MEDS: INSULIN LANTUS (GLARGINE) 1 /0.01ml (100units/ml) SC SCH (06:19)
[2020-06-27] MEDS ORDERED: CALCIUM CHLOR(10%) 100MG/ML 10ML SYRINGE IV ONE (06:29)
[2020-06-27] MEDS ORDERED: SODIUM BICARBONATE 8.4% INJ 50ML SYRINGE IV ONE (06:29)
== END 2020-06-27 06:30 | DRG 870 ==
LOC: ER 08:20 → TELE 08:21 → DOU IN ICU 06-14 10:13
PROVIDERS: ADMIT Internal Medicine; ATTEND Internal Medicine Pulmonary Disease
PROC: XW033E5 Introduction of Remdesivir Anti-infective into Peripheral Vein, Percutaneous Approach, New Technology Group 5 (ICD-10-PCS; 2020-06-01)
PROC: XW13325 Transfusion of Convalescent Plasma (Nonautologous) into Peripheral Vein, Percutaneous Approach, New Technology Group 5 (ICD-10-PCS; 2020-06-01)
PROC: XW033H5 Introduction of Tocilizumab into Peripheral Vein, Percutaneous Approach, New Technology Group 5 (ICD-10-PCS; 2020-06-03)
PROC: 5A1955Z Respiratory Ventilation, Greater than 96 Consecutive Hours (ICD-10-PCS; principal; 2020-06-14)
PROC: 06HM33Z Insertion of Infusion Device into Right Femoral Vein, Percutaneous Approach (ICD-10-PCS; 2020-06-14)
PROC: B54BZZA Ultrasonography of Right Lower Extremity Veins, Guidance (ICD-10-PCS; 2020-06-14)
PROC: 0BH17EZ Insertion of Endotracheal Airway into Trachea, Via Natural or Artificial Opening (ICD-10-PCS; 2020-06-14)
PROC: 5A1D70Z Performance of Urinary Filtration, Intermittent, Less than 6 Hours Per Day (ICD-10-PCS; 2020-06-19)
PROC: 5A1D70Z Performance of Urinary Filtration, Intermittent, Less than 6 Hours Per Day (ICD-10-PCS; 2020-06-21)
PROC: 5A1D70Z Performance of Urinary Filtration, Intermittent, Less than 6 Hours Per Day (ICD-10-PCS; 2020-06-23)
PROC: 5A1D70Z Performance of Urinary Filtration, Intermittent, Less than 6 Hours Per Day (ICD-10-PCS; 2020-06-25)
PROC: 30233N1 Transfusion of Nonautologous Red Blood Cells into Peripheral Vein, Percutaneous Approach (ICD-10-PCS; 2020-06-26)
PROC: 5A12012 Performance of Cardiac Output, Single, Manual (ICD-10-PCS; 2020-06-27)
DX: A41.9 Sepsis, unspecified organism (principal); U07.1 COVID-19; J12.82 Pneumonia due to coronavirus disease 2019; J80 Acute respiratory distress syndrome; R65.21 Severe sepsis with septic shock; N17.0 Acute kidney failure with tubular necrosis; D62 Acute posthemorrhagic anemia; E87.1 Hypo-osmolality and hyponatremia; Z99.11 Dependence on respirator [ventilator] status; I46.9 Cardiac arrest, cause unspecified; E11.65 Type 2 diabetes mellitus with hyperglycemia; E87.5 Hyperkalemia; G83.9 Paralytic syndrome, unspecified; E83.39 Other disorders of phosphorus metabolism; I10 Essential (primary) hypertension; Z86.711 Personal history of pulmonary embolism
CPT/HCPCS: 36415; 36600; 71045; 71275; 76775; 80048; 80053; 80074; 81001; 82040; 82728; 82805; 82962; 83036; 83540; 83550; 83605; 83735; 83880; 84100; 84484; 85007; 85025; 85027; 85379; 85610; 86141; 86850; 86900; 86901; 86920; 87040; 87070; 87077; 87081; 87086; 87186; 87205; 87426; 90935; 92950; 93005; 93970; 94002; 94003; 94640; 94644; 94762; 96365; 96367; 96375; 99291; C9113; G0378; J0171; J0330; J0610; J1100; J1642; J1815; J1956; J2250; J2543; J2704; J3490; J7060; P9047